=== PATIENT | female | born 1960 | race Caucasian/White ===

== ENCOUNTER 2020-07-02 09:29 | Outpatient (CLI) | payer MEDICARE, SELFPAY ==
--- NOTE | ~2020-07-02 | XR_ITS ---
EXAMINATION: XR chest 2V 07/02/2020 09:50 INDICATION: Personal history of nicotine dependence PROCEDURE: 2 view chest COMPARISON: No prior studies for comparison. FINDINGS: The lungs are clear. The cardiomediastinal silhouette is within normal limits. There are no pleural effusions. There is no pneumothorax suspected. IMPRESSION: 1: NO ACUTE CARDIOPULMONARY DISEASE. Reviewed, dictated and finalized at location B.
[2020-07-02 18:57] LABS: Add Urine Microscopic? YES; Appearance Urine Cloudy (Clear); Bacteria Urine Trace /hpf; Bilirubin Urine Negative (Negative); Blood Urine 2+ (Negative); Color Urine Yellow (Yellow); Glucose Urine UA Negative (Negative); Ketones Urine Negative (Negative); Leukocyte Esterase Ur Trace LEU/UL (Negative); Mucus Urine Rare /lpf; Nitrate Urine Negative (Negative); Protein Urine Negative (Negative); Specific Grav Ur 1.021 (1.001-1.035); Squamous Epithelial Cell Urine Occasional /hpf (Few); Urobilinogen Urine Negative mg/dL (<2.0); WBC Urine 0-3 /hpf
[2020-07-02 19:02] LABS: Alanine Aminotransferase 12 U/L (4-35); Albumin Level 3.4 g/dL (3.5-5.1); Alkaline Phosphatase 97 U/L (38-126); Anion Gap 2 mmol/L (8-16); Aspartate Amino Transferase 20 U/L (14-36); Bilirubin,Total 0.3 mg/dL (0.2-1.3); Blood Urea Nitrogen 19 mg/dL (7-17); Calcium 9.1 mg/dL (8.4-10.2); Carbon Dioxide 27 mmol/L (22-30); Chloride 109 mmol/L (98-107); Cholesterol 304 mg/dL (0-200); Estimated Glomerular Filt Rate > 60; Glucose 108 mg/dL (65-105); HDL Direct 41 mg/dL; Sodium 138 mmol/L (137-145); Triglycerides 367 mg/dL (<150)
[2020-07-02 19:13] LABS: LDL Cholesterol Direct 194 mg/dL
[2020-07-02 19:22] LABS: Basophils Percent Auto 0.4 % (0.2-1.2); Eosinophils Absolute Auto 0.2 K/mm3 (0-0.3); Eosinophils Percent Auto 2.6 % (0-4.4); Hematocrit 40.9 % (37.0-47.0); Hemoglobin 12.9 g/dL (12.0-15.0); Immature Granulocyte Absolute 0.02 K/mm3 (0.00-0.031); Immature Granulocyte Percent A 0.3 % (0-0.5); Lymphocytes Absolute Auto 1.92 K/mm3 (0.9-3.2); Lymphocytes Percent Auto 25.9 % (18.3-44.2); Mean Corpuscular HGB Conc 31.5 g/dl (32-36); Mean Corpuscular Hemoglobin 27.3 pg (26-34); Mean Corpuscular Volume 86.7 fl (80-100); Mean Platelet Volume 10.5 fl (7.4-10.4); Monocytes Absolute Auto 0.5 K/mm3 (0.1-0.6); Monocytes Percent Auto 6.3 % (2.6-8.5); Neutrophils Absolute Auto 4.8 K/mm3 (1.3-6.7); Neutrophils Percent Auto 64.5 % (45.5-73.1); Platelet Count Result 256 k/mm3 (150-375); Red Blood Count 4.72 M/mm3 (4.2-5.4); Red Cell Distribution Width 14.4 % (11.5-14.5); White Blood Count 7.4 K/mm3 (4.5-10.0)
[2020-07-02 20:07] LABS: Folic Acid 10.3 ng/mL (2.76->20)
[2020-07-02 20:24] LABS: Vitamin D 25 Hydroxy 20.3 ng/mL
== END 2020-07-02 09:30 | disposition home or self-care (01) ==
PROVIDERS: PCP Family Medicine; Visit Provider Family Medicine
DX: Z87.891 Personal history of nicotine dependence (principal); Z78.0 Asymptomatic menopausal state; Z95.5 Presence of coronary angioplasty implant and graft; I25.10 Atherosclerotic heart disease of native coronary artery without angina pectoris; Z82.62 Family history of osteoporosis; Z79.899 Other long term (current) drug therapy
CPT/HCPCS: 36415; 71046; 80053; 80061; 81001; 82306; 82607; 82746; 84443; 85025

== ENCOUNTER 2020-09-12 08:59 | Outpatient (CLI) | payer MEDICARE, SELFPAY ==
--- NOTE | ~2020-09-12 | CT_ITS ---
EXAMINATION: CT abdomen pelvis wo/w con DATE: 09/12/2020 09:48 INDICATION: Microscopic hematuria TECHNIQUE: Computed tomography (CT) of the abdomen and pelvis was performed without and subsequently with 130 cc Omnipaque 350 intravenous contrast. Automated exposure control and iterative reconstructi on technique were employed. Exam dose: 2152.29 mGy-cm total exam DLP. COMPARISON: 09/12/2020 KUB FINDINGS: The lung bases are clear of infiltrate or consolidation. Normal heart size. No pericardial or pleural effusion. The liver, gallbladder, bile ducts, pancreas and pancreatic duct are unremarkable. Borderline splenom egaly, spleen measuring up to 12.6 cm vertical dimension. No urinary tract calculus or hydroureteronephrosis. Renal artery calcifications are noted at the left renal hilum. There are 2 probable small right renal cysts, measuring up to 4.5 mm. Normal caliber of the abdominal aorta. No intraperitoneal or retroperitoneal or pelvic mass lesion or adenopathy or ascites. The urinary bladder appears unremarkable. Approximately 2.3 cm left ovarian or adnexal cystic lesion. The uterus and adnexal areas are otherwis e unremarkable. Normal appendix. No bowel obstruction, bowel wall thickening, pneumatosis or intraperitoneal free air . Small fat-containing umbilical hernia. There are degenerative changes apophyseal joints with associated grade 1 anterolisthesis at L4-5. Diffuse osteopenia. IMPRESSION: Borderline splenic size 2 probable small right renal cysts No urinary tract calculus or hydroureteronephrosis 2.37 or left ovarian or adnexal cystic lesion; consider pelvic ultrasound correlation Reviewed, dictated and finalized at Location [facility]. Reviewed, dictated and finalized at location A. IMPRESSION: Borderline splenic size 2 probable small right renal cysts No urinary tract calculus or hydroureteronephrosis 2.37 or left ovarian or adnexal cystic lesion; consider pelvic ultrasound corre lation
--- NOTE | ~2020-09-12 | XR_ITS ---
XR abdomen/kub 1V DATE: 09/12/2020 09:20 INDICATION: Microscopic hematuria TECHNIQUE: AP projection, 2 views COMPARISON: 09/12/[address] abdomen and pelvis FINDINGS: There is a prominent of fecal material in the colon but no evidence of bowel obstruction. T he psoas shadows are intact. No visceromegaly is evident. There are bilateral calcified pelvic phlebo liths. IMPRESSION: Nonspecific abdomen Reviewed, dictated and finalized at Location [facility]. Reviewed, dictated and finalized at location A. IMPRESSION: Nonspecific abdomen
== END 2020-09-12 09:00 | disposition home or self-care (01) ==
PROVIDERS: PCP Family Medicine; Visit Provider Nurse Practitioner Family
DX: R31.29 Other microscopic hematuria (principal); N28.1 Cyst of kidney, acquired
CPT/HCPCS: 74018; 74178; Q9967

== ENCOUNTER 2020-12-24 09:10 | Outpatient (CLI) | payer MEDICARE, SELFPAY ==
[2020-12-24 18:26] LABS: Hematocrit 43.9 % (37.0-47.0); Mean Corpuscular HGB Conc 29.6 g/dl (32-36); Mean Corpuscular Hemoglobin 26.6 pg (26-34); Mean Platelet Volume 10.6 fl (7.4-10.4); Platelet Count Result 280 k/mm3 (150-375); Red Blood Count 4.88 M/mm3 (4.2-5.4); Red Cell Distribution Width 15.5 % (11.5-14.5); White Blood Count 6.4 K/mm3 (4.5-10.0)
[2020-12-24 18:44] LABS: Alanine Aminotransferase 15 U/L (4-35); Alkaline Phosphatase 101 U/L (38-126); Anion Gap 8 mmol/L (8-16); Aspartate Amino Transferase 24 U/L (14-36); Bilirubin,Total 0.2 mg/dL (0.2-1.3); Blood Urea Nitrogen 15 mg/dL (7-17); Calcium 9.6 mg/dL (8.4-10.2); Carbon Dioxide 24 mmol/L (22-30); Chloride 110 mmol/L (98-107); Cholesterol 166 mg/dL (0-200); Estimated Glomerular Filt Rate > 60; Glucose 110 mg/dL (65-110); HDL Direct 60 mg/dL; Potassium 4.2 mmol/L (3.4-5.0); Sodium 142 mmol/L (137-145); Triglycerides 115 mg/dL (<150)
[2020-12-24 18:55] LABS: LDL Cholesterol Direct 89 mg/dL
[2020-12-24 18:56] LABS: Vitamin D 25 Hydroxy 67.1 ng/mL
[2020-12-24 19:50] LABS: Hemoglobin A1C 5.3 % (<5.7)
[2020-12-28 09:25] LABS: Amphetamines NEGATIVE ng/mL (<500); Barbiturates NEGATIVE ng/mL (<300); Benzodiazepines NEGATIVE ng/mL (<100); Cocaine Metabolite NEGATIVE ng/mL (<100); Codeine NEGATIVE ng/mL (<50); Hydrocodone NEGATIVE ng/mL (<50); Hydromorphone NEGATIVE ng/mL (<50); Marijuana Metabolite POSITIVE ng/mL (<20); Methadone Metabolite NEGATIVE ng/mL (<100); Morphine NEGATIVE ng/mL (<50); Norhydrocodone NEGATIVE ng/mL (<50); Opiates NEGATIVE CONFIRMED ng/mL (<100); Oxidant NEGATIVE mcg/mL (<200); pH 5.4 (4.5-9.0)
== END 2020-12-24 09:11 | disposition home or self-care (01) ==
PROVIDERS: PCP Family Medicine; Visit Provider Family Medicine
DX: E78.2 Mixed hyperlipidemia (principal); G47.00 Insomnia, unspecified; R79.89 Other specified abnormal findings of blood chemistry; Z78.0 Asymptomatic menopausal state; Z95.5 Presence of coronary angioplasty implant and graft; G89.29 Other chronic pain; E55.9 Vitamin D deficiency, unspecified; Z79.899 Other long term (current) drug therapy
CPT/HCPCS: 36415; 80053; 80061; 80299; 82306; 83036; 85027

== ENCOUNTER 2021-06-04 10:20 | Outpatient (CLI) | payer MEDICARE, SELFPAY ==
--- NOTE | ~2021-06-04 | XR_ITS ---
EXAMINATION: XR chest 2V EXAM DATE: 06/04/2021 10:44 INDICATION: R06.00 - Dyspnea, unspecified. TECHNIQUE: Frontal and lateral projections of the chest obtained and reviewed. Comparison is made to prior examination from 06/12/2020. FINDINGS: The lungs are clear. There are no pleural effusions. The cardiomediastinal silhouette is within normal limits. There is no pneumothorax suspected. The bones and soft tissues are unremarkab le. IMPRESSION: Normal chest. Reviewed, dictated and finalized at location B. IMPRESSION: Normal chest.
--- NOTE | ~2021-06-04 | XR_ITS ---
XR ribs RT 2V DATE: 06/04/2021 10:45 INDICATION: Right upper lateral rib pain. Shortness of breath. TECHNIQUE: 3 views of right ribs COMPARISON: None FINDINGS: There is diffuse osteopenia. No fracture or bone destruction of the right ribs is evident. IMPRESSION: No rib fracture is detected Reviewed, dictated and finalized at location A. IMPRESSION: No rib fracture is detected
[2021-06-04 19:14] LABS: Hematocrit 31.6 % (37.0-47.0); Hemoglobin 8.9 g/dL (12.0-15.0); Mean Corpuscular HGB Conc 28.2 g/dl (32-36); Mean Corpuscular Hemoglobin 21.4 pg (26-34); Mean Platelet Volume 10.5 fl (7.4-10.4); Platelet Count Result 316 k/mm3 (150-375); Red Blood Count 4.16 M/mm3 (4.2-5.4); Red Cell Distribution Width 16.9 % (11.5-14.5); White Blood Count 5.2 K/mm3 (4.5-10.0)
[2021-06-04 19:21] LABS: Iron 28 ug/dL (37-170)
[2021-06-04 19:31] LABS: Percent Iron Saturation 5 % (20-50)
== END 2021-06-04 10:21 | disposition home or self-care (01) ==
PROVIDERS: PCP Family Medicine; Visit Provider Family Medicine
DX: R07.81 Pleurodynia (principal); R06.00 Dyspnea, unspecified; R63.4 Abnormal weight loss; R79.89 Other specified abnormal findings of blood chemistry
CPT/HCPCS: 36415; 71046; 71100; 83540; 83550; 84443; 85027

== ENCOUNTER 2021-07-01 09:26 | Outpatient (CLI) | payer MEDICARE, SELFPAY ==
[2021-07-01 18:47] LABS: Basophils Absolute Auto 0.1 K/mm3 (0.0-0.1); Eosinophils Percent Auto 0.7 % (0-4.4); Hematocrit 36.1 % (37.0-47.0); Hemoglobin 9.9 g/dL (12.0-15.0); Immature Granulocyte Absolute 0.02 K/mm3 (0.00-0.031); Immature Granulocyte Percent A 0.3 % (0-0.5); Lymphocytes Absolute Auto 0.94 K/mm3 (0.9-3.2); Lymphocytes Percent Auto 15.8 % (18.3-44.2); Mean Corpuscular HGB Conc 27.4 g/dl (32-36); Mean Corpuscular Hemoglobin 21.6 pg (26-34); Mean Corpuscular Volume 78.6 fl (80-100); Mean Platelet Volume 9.8 fl (7.4-10.4); Monocytes Absolute Auto 0.6 K/mm3 (0.1-0.6); Monocytes Percent Auto 9.9 % (2.6-8.5); Neutrophils Absolute Auto 4.3 K/mm3 (1.3-6.7); Neutrophils Percent Auto 72.3 % (45.5-73.1); Platelet Count Result 287 k/mm3 (150-375); Red Blood Count 4.59 M/mm3 (4.2-5.4); Red Cell Distribution Width 20.4 % (11.5-14.5); White Blood Count 5.9 K/mm3 (4.5-10.0)
[2021-07-01 19:01] LABS: Iron 124 ug/dL (37-170)
[2021-07-01 19:08] LABS: Platelet Estimate Adequate (Adequate)
[2021-07-01 19:09] LABS: Anisocytosis 1+ (NORMAL); Hypochromasia 1+ (NORMAL); Ovalocytes 1+ (NORMAL)
[2021-07-01 19:18] LABS: Percent Iron Saturation 21 % (20-50)
== END 2021-07-01 09:27 | disposition home or self-care (01) ==
PROVIDERS: PCP Family Medicine; Visit Provider Family Medicine
DX: G25.81 Restless legs syndrome (principal); D64.9 Anemia, unspecified; R63.4 Abnormal weight loss; R79.89 Other specified abnormal findings of blood chemistry; R07.81 Pleurodynia
CPT/HCPCS: 36415; 83540; 83550; 85025

== ENCOUNTER 2021-10-30 08:16 | Outpatient (CLI) | payer MEDICARE, SELFPAY ==
[2021-10-30 18:58] LABS: Basophils Absolute Auto 0.1 K/mm3 (0.0-0.1); Basophils Percent Auto 0.8 % (0.2-1.2); Eosinophils Absolute Auto 0.2 K/mm3 (0-0.3); Eosinophils Percent Auto 3.7 % (0-4.4); Hematocrit 44.9 % (37.0-47.0); Hemoglobin 13.5 g/dL (12.0-15.0); Immature Granulocyte Absolute 0.02 K/mm3 (0.00-0.031); Immature Granulocyte Percent A 0.3 % (0-0.5); Lymphocytes Percent Auto 20.1 % (18.3-44.2); Mean Corpuscular HGB Conc 30.1 g/dl (32-36); Mean Corpuscular Hemoglobin 27.2 pg (26-34); Mean Corpuscular Volume 90.5 fl (80-100); Mean Platelet Volume 9.7 fl (7.4-10.4); Monocytes Absolute Auto 0.4 K/mm3 (0.1-0.6); Monocytes Percent Auto 6.6 % (2.6-8.5); Neutrophils Absolute Auto 4.4 K/mm3 (1.3-6.7); Neutrophils Percent Auto 68.5 % (45.5-73.1); Platelet Count Result 291 k/mm3 (150-375); Red Blood Count 4.96 M/mm3 (4.2-5.4); Red Cell Distribution Width 20.6 % (11.5-14.5); White Blood Count 6.5 K/mm3 (4.5-10.0)
[2021-10-30 19:42] LABS: Iron 67 ug/dL (37-170)
[2021-10-30 19:52] LABS: Percent Iron Saturation 14 % (20-50)
== END 2021-10-30 08:17 | disposition home or self-care (01) ==
PROVIDERS: PCP Family Medicine; Visit Provider Family Medicine
DX: D64.9 Anemia, unspecified (principal)
CPT/HCPCS: 36415; 83540; 83550; 85025

== ENCOUNTER 2021-12-10 09:06 | Outpatient (CLI) | payer MEDICARE, SELFPAY ==
[2021-12-10 18:40] LABS: Appearance Urine Slightly Cloudy (Clear); Bilirubin Urine 1+ (Negative); Blood Urine 2+ (Negative); Color Urine Yellow (Yellow); Glucose Urine UA Negative (Negative); Ketones Urine Negative (Negative); Leukocyte Esterase Ur 1+ LEU/UL (NEGATIVE); Nitrate Urine Negative (Negative); Protein Urine Negative (Negative); Specific Grav Ur 1.025 (1.001-1.035); Urobilinogen Urine 0.2 mg/dL (<2.0)
[2021-12-10 18:49] LABS: Add Urine Microscopic? YES; Mucus Urine Rare /lpf; RBC Urine 0-2 /hpf (0-2); Squamous Epithelial Cell Urine Many /hpf (Few)
== END 2021-12-10 09:07 | disposition home or self-care (01) ==
PROVIDERS: PCP Family Medicine; Visit Provider Family Medicine
DX: N30.90 Cystitis, unspecified without hematuria (principal)
CPT/HCPCS: 81001; 87086

== ENCOUNTER 2022-02-28 15:55 | Emergency (ER) | payer MEDICARE, SELFPAY ==
--- NOTE | ~2022-02-28 | XR_ITS ---
Left foot Technique: AP, oblique, and lateral views were obtained. Clinical History: Pain Findings: There is a transverse, traumatic, nondisplaced fracture of the base of fifth metatarsal. No other fracture or dislocation seen. There is probable postoperative change of the first metatarsal. Plantar calcaneal spur noted. Joint spaces are preserved without erosive or degenerative change. Soft tissues are unremarkable. Impression: Transverse, essentially nondisplaced fracture of the base of the fifth metatarsal. Probable postoperative change of the first metatarsal. Correlate with surgical history. Reviewed, dictated and finalized at [facility]. [employer] Impression: Transverse, essentially nondisplaced fracture of the base of the fifth metatars al. Probable postoperative change of the first metatarsal. Correlate with surgical history.
--- NOTE | 2022-02-28 15:57 | ED.LOWEXIN ---
HPI - Extremity Injury (Lower) General Chief Complaint: Extremity Injury, Lower Stated Complaint: left foor injury Time Seen by Provider: 02/28/22 15:57 Source: patient and RN notes reviewed Mode of arrival: wheelchair Limitations: no limitations History of Present Illness HPI Narrative: patient states that she moved into a new house and there is a small riser lip in the floor going into 1 of the rooms. She caught her foot on that causing inversion twisting injury of her left foot. complaint: foot injury Onset (ago): hour(s) (2) Injury: Left: foot Type of Injury: inversion Place: home Severity: severe Relieving factors: rest Exacerbating factors: weight bearing, movement and palpation Context: walking Associated symptoms: snap/pop sensation and unable to bear weight Other symptoms: none Treatments prior to arrival: bandage (Alvin wrap) Related Data Home Medications Medication Instructions Recorded Confirmed aspirin 81 mg tablet,delayed 81 mg PO DAILY 06/19/20 02/28/22 release (Adult Low Dose Aspirin) Allergies Allergy/AdvReac Type Severity Reaction Status Date / Time No Known Allergies Allergy Verified 02/28/22 16:17 Review of Systems Review of Systems: All systems reviewed & are unremarkable except as noted in HPI and below PMFSH Past Medical History Medical History (Updated 02/28/22 @ 16:32 by Leobardo Muñiz MD) Anxiety Arthritis CAD (coronary artery disease) Depression Eczema Encounter for administration of vaccine Heart attack Heart disease Mixed dyslipidemia Obesity Surgical History Surgical History (Updated 02/28/22 @ 16:14 by Leobardo Muñiz MD) H/O foot surgery History of bladder surgery Stented coronary artery Family History Family History Father Alcohol abuse Throat cancer Diabetes mellitus Liver problem Mother Heart problem Sibling Alcohol abuse Other Alcohol abuse Social History Social History Smoking packs per day: 1 Smoking cigarettes per day: 20.0 Years smoked: 30 Smoking pack-years: 30.00 Smoking status: Former smoker Tobacco type: cigarettes Smoking end date: 04/09/20 Alcohol intake: never Substance use: never Substance use type: does not use Exam Const: General: healthy appearing, no acute distress and alert Nutritional Appearance: well nourished and obese Orientation/consciousness: patient oriented x3 Limitations: no limitations HENMT: Head: normal to inspection Ears: external ears normal Eyes: Conjunctivae: conjunctivae normal Pupils: Equal, round and reactive pupils present EOM: EOMs intact bilaterally Neck: Neck: normal visual inspection Resp: Effort & Inspection: normal respiratory effort Auscultation: clear to auscultation bilaterally Cardio: Rate: regular rate Rhythm: regular rhythm GI: GI Palp: Yes Soft to palpation and No Tenderness to palpation present (GI) Auscultation: normal bowel sounds Back/Spine/Pelvis: Cervical Spine: cervical ROM normal Thoracic/Lumbar Spine: thoraco-lumbar ROM normal Skin: General skin exam: normal color Rashes: no rashes Neuro: General: patient oriented x3, moves all extremities, no focal motor deficits and CN's II-XI intact bilaterally Speech: normal speech Extrem: General: normal exam except as noted and no clubbing, cyanosis or edema Left lower extremity: foot Details: normal capillary refill, abnormal to inspection, tenderness Location: of the base of the 5th metatarsal, toes with normal ROM, ecchymosis ( base of the 5th metatarsal) dorsal lateral distal single and motor-sensory exam (Normal) Psych: Mental Status: mental status grossly normal Affect: normal affect Attitude: cooperative Course Vital Signs Vital signs: Vital Signs Temperature 36.9 C 02/28/22 15:59 Pulse Rate 88 02/28/22 15:59 Respiratory Rate 16 02/28/22 15:59 Blood Pressure
[2022-02-28 15:59] VITALS: BP 105/90; PULSE 88; RESP 16; TEMP 36.9; O2SAT 98
[2022-02-28] MEDS: HYDROcodone/acetaminophen (*CRX) 5-325 MG TABLET 1 TAB PO (16:34)
[2022-02-28 17:01] VITALS: BP 108/88; PULSE 64; RESP 20; TEMP 36.9; O2SAT 96
== END 2022-02-28 17:04 | disposition home or self-care (01) ==
PROVIDERS: Emergency Provider Emergency Medicine; PCP Family Medicine
DX: S92.352A Displaced fracture of fifth metatarsal bone, left foot, initial encounter for closed fracture (principal); X50.0XXA Overexertion from strenuous movement or load, initial encounter; I25.10 Atherosclerotic heart disease of native coronary artery without angina pectoris; I25.2 Old myocardial infarction; I51.9 Heart disease, unspecified; Z95.5 Presence of coronary angioplasty implant and graft; Z87.891 Personal history of nicotine dependence; Z79.82 Long term (current) use of aspirin; Z79.51 Long term (current) use of inhaled steroids; Z79.02 Long term (current) use of antithrombotics/antiplatelets; E78.2 Mixed hyperlipidemia; F41.9 Anxiety disorder, unspecified; F32.A Depression, unspecified; E66.9 Obesity, unspecified; Z68.33 Body mass index [BMI] 33.0-33.9, adult
CPT/HCPCS: 73630; 99284; A9270; L2112

== ENCOUNTER 2022-04-22 10:20 | Outpatient (CLI) | payer MEDICARE, SELFPAY ==
--- NOTE | ~2022-04-22 | XR_ITS ---
EXAMINATION: XR foot LT min 3V DATE: 04/22/2022 10:32 INDICATION: Fifth metatarsal fracture follow-up TECHNIQUE: Dorsoplantar, lateral, and 2 oblique views of the left foot were obtained. COMPARISON: 02/28/2022 FINDINGS: Again seen is a transverse fracture at the base of the fifth metatarsal. There is slight wi dening at the fracture site since the comparison examination. Some calcified callus has developed. Th ere is suggestion of postoperative change involving first metatarsal, stable. Mild osteoarthritis is noted in multiple interphalangeal joints. No additional acute fracture is identified. A plantar calca serafin enthesophyte is noted. IMPRESSION: 1. Transverse fracture at the base of the fifth metatarsal with slight widening at the fracture site but development of calcified callus. Reviewed, dictated and finalized at location L. [employer]
== END 2022-04-22 10:21 | disposition home or self-care (01) ==
LOC: ANHBWCIMG 10:21
PROVIDERS: PCP Family Medicine; Visit Provider Family Medicine
DX: S92.352A Displaced fracture of fifth metatarsal bone, left foot, initial encounter for closed fracture (principal); X58.XXXA Exposure to other specified factors, initial encounter
CPT/HCPCS: 73630

== ENCOUNTER 2022-05-02 02:47 | Day surgery (SDC) | payer MEDICARE, SELFPAY ==
[2022-04-22 12:13] VITALS: BMI 33.1
[2022-05-02 10:15] VITALS: BP 103/78; PULSE 72; RESP 18; TEMP 36.6; O2SAT 99
[2022-05-02] MEDS: LACTATED RINGERS 1,000 ML 150 ML IV CONT (10:23)
--- NOTE | 2022-05-02 10:29 | WPDANESEPPF ---
Anes - Initial Pre Proc Eval Procedure: Operation Date: 05/02/22 11:15 Proposed Procedures p Colonoscopy - Gilles Gonzalez MD Date/Time: 05/02/22 10:29 Surgeon: Gilles Gonzalez MD Pre Op Diagnosis: Other fecal abnormalitis Patient Data Age: 61 Gender: F Height: 1.7 m Weight: 95.2 kg Last Vital Signs Temp 97.8 F 05/02/22 10:15 Pulse 72 05/02/22 10:15 Resp 18 05/02/22 10:15 BP 103/78 05/02/22 10:15 Pulse Ox 99 05/02/22 10:15 O2 Del Method Room Air 05/02/22 10:15 Allergies Allergy/AdvReac Type Severity Reaction Status Date / Time No Known Allergies Allergy Verified 05/02/22 10:14 Home Medications Medication Instructions Recorded Confirmed Type aspirin 81 mg tablet,delayed 81 mg PO DAILY 06/19/20 04/22/22 History release (Adult Low Dose Aspirin) albuterol sulfate 90 mcg/actuation 1 inh inhalation Q4H PRN shortness 06/04/21 04/22/22 Rx aerosol inhaler of breath or wheezing #8.5 grams ropinirole 2 mg tablet 2 mg PO BID #180 tabs 12/11/21 04/22/22 Rx ferrous sulfate 325 mg (65 mg 325 mg PO DAILY #90 tabs 12/19/21 05/02/22 Rx iron) tablet,delayed release trazodone 50 mg tablet 100 mg PO QHS PRN insomnia #180 01/06/22 04/22/22 Rx tabs isosorbide mononitrate 60 mg 90 mg PO DAILY #90 tabs 01/10/22 05/02/22 Rx tablet,extended release 24 hr rosuvastatin 40 mg tablet 40 mg PO DAILY #90 tabs 01/16/22 04/22/22 Rx buspirone 15 mg tablet 15 mg PO BID #180 tabs 01/28/22 04/22/22 Rx metoprolol succinate 50 mg 50 mg PO BID #180 tabs 02/06/22 05/02/22 Rx tablet,extended release 24 hr clopidogrel 75 mg tablet (Plavix) 75 mg PO DAILY #90 tabs 02/15/22 05/02/22 Rx duloxetine 60 mg capsule,delayed 60 mg PO BID #180 caps 03/02/22 04/22/22 Rx release quetiapine 50 mg tablet 50 mg PO QHS #90 tabs 04/22/22 04/22/22 Rx Patient hx anesthesia problems: none Family hx anesthesia problems: none Results Review: All pre-operative results and documents have been reviewed as part of the pre-operative evaluation. [facility] Past Medical History Medical History (Updated 04/22/22 @ 12:00 by Adriano Stiles MD) Anxiety Arthritis CAD (coronary artery disease) Depression Eczema Encounter for administration of vaccine Heart attack Heart disease Mixed dyslipidemia Obesity Surgical History Surgical History (Updated 02/28/22 @ 16:14 by Leobardo Muñiz MD) H/O foot surgery History of bladder surgery Stented coronary artery Family History Family History Father Alcohol abuse Throat cancer Diabetes mellitus Liver problem Mother Heart problem Sibling Alcohol abuse Other Alcohol abuse Social History Social History (Updated 03/06/22 @ 10:17 by Sherin Cassidy MA) Smoking packs per day: 1 Smoking cigarettes per day: 20.0 Years smoked: 30 Smoking pack-years: 30.00 Smoking status: Former smoker Tobacco type: cigarettes Smoking end date: 04/09/20 Alcohol intake: current Substance use: never Substance use type: does not use Lack of Transportation: No Lack of Food: Never True Current Housing: I Have Housing Concerned About Future Housing: No Difficulty Paying Gas/Electric Bills: No Difficulty Paying for Meds: No Currently Unemployed: No Education: High School Diploma/GED Difficulty w/ Childcare or Family Care: No Living arrangements: with family Spiritual care concerns: No Anes - Eval Final PreProcedure Day of Procedure 05/02/22 10:29 Patient weight: obese Heart: regular rate and rhythm Lungs: clear to auscultation Airway: Mallampati scale class III Neurological: alert and oriented Last oral intake: >/= 8 hours ASA classification: III Emergent: no Anesthetic plan: proceed Anesthesia type and monitoring: general GIVS and standard monitoring Results Review: All pre-operative results and documents have been reviewed as part of the pre-o
--- NOTE | 2022-05-02 10:45 | PM.HPGS ---
History of Present Illness History of Present Illness Consent: Risks, benefits, and alternatives have been discussed and questions answered. Patient agrees to proceed with procedure. Chief complaint: Other fecal abnormalitis Narrative: Colette Reyes is a 61 year old female with last colonoscopy 10 years ago, had + cologuard Review of Systems Constitutional: Constitutional: Denies headache(s) and Denies weakness Eyes: Eyes: Denies blurry vision ENT: Reports Normal hearing present, Denies headache(s) and Denies neck pain Cardiovascular: Cardiovascular: Denies chest pain and Denies dyspnea Respiratory: Respiratory: Denies dyspnea Gastrointestinal: Gastrointestinal: Reports no additional gastrointestinal complaints Genitourinary: Genitourinary: Denies dysuria Musculoskeletal: Musculoskeletal: Denies neck pain Integumentary/Breasts: Skin/Breast: Denies dry skin Neurologic: Reports Normal hearing present, Denies headache(s) and Denies weakness Psychiatric: Psychiatric: Denies anxiety Endocrine: Endocrine: Denies change in body appearance Hematologic/Lymphatic: Hematologic/Lymphatic: Denies easy bleeding Allergic/Immunologic: Allergic/Immunologic: Denies urticaria PMFSH Past Medical History Medical History (Updated 04/22/22 @ 12:00 by Adriano Stiles MD) Anxiety Arthritis CAD (coronary artery disease) Depression Eczema Encounter for administration of vaccine Heart attack Heart disease Mixed dyslipidemia Obesity Surgical History Surgical History (Updated 02/28/22 @ 16:14 by Leobardo Muñiz MD) H/O foot surgery History of bladder surgery Stented coronary artery Family History Family History Father Alcohol abuse Throat cancer Diabetes mellitus Liver problem Mother Heart problem Sibling Alcohol abuse Other Alcohol abuse Social History Social History (Updated 03/06/22 @ 10:17 by Sherin Cassidy MA) Smoking packs per day: 1 Smoking cigarettes per day: 20.0 Years smoked: 30 Smoking pack-years: 30.00 Smoking status: Former smoker Tobacco type: cigarettes Smoking end date: 04/09/20 Alcohol intake: current Substance use: never Substance use type: does not use Lack of Transportation: No Lack of Food: Never True Current Housing: I Have Housing Concerned About Future Housing: No Difficulty Paying Gas/Electric Bills: No Difficulty Paying for Meds: No Currently Unemployed: No Education: High School Diploma/GED Difficulty w/ Childcare or Family Care: No Living arrangements: with family Spiritual care concerns: No Meds Home Medications and Allergies Home Medications Medication Instructions Recorded Confirmed Type aspirin 81 mg tablet,delayed 81 mg PO DAILY 06/19/20 04/22/22 History release (Adult Low Dose Aspirin) albuterol sulfate 90 mcg/actuation 1 inh inhalation Q4H PRN shortness 06/04/21 04/22/22 Rx aerosol inhaler of breath or wheezing #8.5 grams ropinirole 2 mg tablet 2 mg PO BID #180 tabs 12/11/21 04/22/22 Rx ferrous sulfate 325 mg (65 mg 325 mg PO DAILY #90 tabs 12/19/21 05/02/22 Rx iron) tablet,delayed release trazodone 50 mg tablet 100 mg PO QHS PRN insomnia #180 01/06/22 04/22/22 Rx tabs isosorbide mononitrate 60 mg 90 mg PO DAILY #90 tabs 01/10/22 05/02/22 Rx tablet,extended release 24 hr rosuvastatin 40 mg tablet 40 mg PO DAILY #90 tabs 01/16/22 04/22/22 Rx buspirone 15 mg tablet 15 mg PO BID #180 tabs 01/28/22 04/22/22 Rx metoprolol succinate 50 mg 50 mg PO BID #180 tabs 02/06/22 05/02/22 Rx tablet,extended release 24 hr clopidogrel 75 mg tablet (Plavix) 75 mg PO DAILY #90 tabs 02/15/22 05/02/22 Rx duloxetine 60 mg capsule,delayed 60 mg PO BID #180 caps 03/02/22 04/22/22 Rx release quetiapine 50 mg tablet 50 mg PO QHS #90 tabs 04/22/22 04/22/22 Rx Allergies Allergy/AdvReac Type Severity Reaction Status Date / Time No Known Allergies
[2022-05-02 11:14] VITALS: BP 110/78; PULSE 77; RESP 16; O2SAT 91
[2022-05-02 11:17] VITALS: PULSE 77; RESP 26
--- NOTE | 2022-05-02 11:21 | SUR.PHASEII ---
Respiratory treatment ordered by Dr. Thao and RGael. here to administer treatment.
[2022-05-02 11:24] VITALS: BP 100/65; PULSE 72; RESP 18; O2SAT 96
[2022-05-02] MEDS: ALBUTEROL SULFATE NEB 2.5 MG/3 ML INH INHALATION (11:24)
[2022-05-02 11:27] VITALS: PULSE 71; RESP 16
[2022-05-02 11:34] VITALS: BP 103/63; PULSE 67; RESP 16; O2SAT 96
--- NOTE | 2022-05-13 13:41 | WPDANESPN ---
Anes - Prog Note Post-Op Date/Time: 05/13/22 13:41 Cardiovascular status: normal Respiratory status: normal Airway patency: baseline (states has been hoarse/ no voice since her procedure) Mental status: baseline Post-Op hydration status: normal Vital Signs: Last Vital Signs Temp 97.8 F 05/02/22 10:15 Pulse 67 05/02/22 11:34 Resp 16 05/02/22 11:34 BP 103/63 05/02/22 11:34 Pulse Ox 96 05/02/22 11:34 O2 Del Method Room Air 05/02/22 11:34 Pain Score (VAS): none Post-procedural complaints: none Patient Feedback: Patient satisfied with anesthetic care. Other Findings: I attempted to call the patient several times prior to today with no answer. I finally spoke with her today to check on her status. I called, she answered then hung up the phone. I recalled and then she states why do you keep calling and I told her, this is my first time talking to her. She stated that she still didn't have a voice and I should have talked to her sooner after the procedure. I told her I had called several times with no answer. She then told me goodbye without allowing me to speak with her.
== END 2022-05-02 11:54 | disposition home or self-care (01) ==
PROVIDERS: PCP Family Medicine; Visit Provider Internal Medicine Gastroenterology
PROC: 0DJD8ZZ Inspection of Lower Intestinal Tract, Via Natural or Artificial Opening Endoscopic (ICD-10-PCS; CPT 45378; principal; 2022-05-02 11:15)
DX: R19.5 Other fecal abnormalities (principal); D12.4 Benign neoplasm of descending colon; K57.30 Diverticulosis of large intestine without perforation or abscess without bleeding; K64.8 Other hemorrhoids; I25.10 Atherosclerotic heart disease of native coronary artery without angina pectoris; I25.2 Old myocardial infarction; E78.2 Mixed hyperlipidemia; F41.9 Anxiety disorder, unspecified; F32.A Depression, unspecified; E66.9 Obesity, unspecified; Z68.32 Body mass index [BMI] 32.0-32.9, adult; Z87.891 Personal history of nicotine dependence; Z79.82 Long term (current) use of aspirin; Z79.51 Long term (current) use of inhaled steroids; Z79.02 Long term (current) use of antithrombotics/antiplatelets; Z95.5 Presence of coronary angioplasty implant and graft
CPT/HCPCS: 45385; 88305; 94640; J2704; J7120

== ENCOUNTER 2022-05-08 12:20 | Outpatient (CLI) | payer MEDICARE, SELFPAY ==
[2022-05-08 19:34] LABS: Alanine Aminotransferase 17 U/L (6-35); Albumin Level 3.7 g/dL (3.5-5.1); Alkaline Phosphatase 104 U/L (38-126); Anion Gap -2 mmol/L (8-16); Aspartate Amino Transferase 70 U/L (14-36); Bilirubin,Total 0.4 mg/dL (0.2-1.3); Blood Urea Nitrogen 14 mg/dL (7-17); Carbon Dioxide 32 mmol/L (22-30); Chloride 107 mmol/L (98-107); Cholesterol 166 mg/dL (0-200); Estimated Glomerular Filt Rate > 60; Glucose 85 mg/dL (65-110); HDL Direct 52 mg/dL; Potassium 3.9 mmol/L (3.4-5.0); Sodium 137 mmol/L (137-145); Triglycerides 135 mg/dL (<150)
[2022-05-08 19:45] LABS: LDL Cholesterol Direct 70 mg/dL
[2022-05-08 21:10] LABS: Basophils Percent Auto 0.7 % (0.2-1.2); Eosinophils Absolute Auto 0.2 K/mm3 (0-0.3); Eosinophils Percent Auto 2.6 % (0-4.4); Hemoglobin 13.7 g/dL (12.0-15.0); Immature Granulocyte Absolute 0.02 K/mm3 (0.00-0.031); Immature Granulocyte Percent A 0.3 % (0-0.5); Lymphocytes Absolute Auto 1.51 K/mm3 (0.9-3.2); Lymphocytes Percent Auto 26.3 % (18.3-44.2); Mean Corpuscular HGB Conc 30.4 g/dl (32-36); Mean Corpuscular Hemoglobin 29.1 pg (26-34); Mean Corpuscular Volume 95.7 fl (80-100); Mean Platelet Volume 10.2 fl (7.4-10.4); Monocytes Absolute Auto 0.3 K/mm3 (0.1-0.6); Monocytes Percent Auto 5.7 % (2.6-8.5); Neutrophils Absolute Auto 3.7 K/mm3 (1.3-6.7); Neutrophils Percent Auto 64.4 % (45.5-73.1); Platelet Count Result 291 k/mm3 (150-375); Red Cell Distribution Width 13.4 % (11.5-14.5); White Blood Count 5.8 K/mm3 (4.5-10.0)
== END 2022-05-08 12:21 | disposition home or self-care (01) ==
LOC: ANHBWCLAB 12:21
PROVIDERS: PCP Family Medicine; Visit Provider Family Medicine
DX: D64.9 Anemia, unspecified (principal); E66.9 Obesity, unspecified; E78.2 Mixed hyperlipidemia; S92.501A Displaced unspecified fracture of right lesser toe(s), initial encounter for closed fracture
CPT/HCPCS: 36415; 80053; 80061; 85025

== ENCOUNTER 2022-10-14 07:46 | Outpatient (CLI) | payer MEDICARE, SELFPAY ==
[2022-10-14 18:53] LABS: Alanine Aminotransferase 20 U/L (6-35); Albumin Level 3.5 g/dL (3.5-5.1); Alkaline Phosphatase 98 U/L (38-126); Aspartate Amino Transferase 62 U/L (14-36); Bilirubin,Total 0.3 mg/dL (0.2-1.3)
[2022-10-14 19:25] LABS: Hepatitis B Surface Antigen Negative (Negative)
[2022-10-14 19:31] LABS: HAV RESULT Negative (Negative); Hepatitis B Core IgM Result Negative (Negative)
[2022-10-14 19:42] LABS: Hepatitis C Virus Antibody Negative (Negative)
== END 2022-10-14 07:47 | disposition home or self-care (01) ==
PROVIDERS: PCP Family Medicine; Visit Provider Family Medicine
DX: R74.8 Abnormal levels of other serum enzymes (principal); E66.9 Obesity, unspecified; G47.00 Insomnia, unspecified; R74.01 Elevation of levels of liver transaminase levels
CPT/HCPCS: 36415; 80074; 80076

== ENCOUNTER 2022-10-31 09:17 | Outpatient (CLI) | payer MEDICARE, SELFPAY ==
--- NOTE | ~2022-10-31 | US_ITS ---
US abdomen limited INDICATION: Abnormal levels of serum enzymes PROCEDURE: Realtime right upper abdominal ultrasound. COMPARISON: No prior studies for comparison. FINDINGS: The pancreas is normal without focal mass or pancreatic ductal dilation. Liver echotexture is normal without focal mass or intrahepatic biliary dilatation. There is normal directional flow i n the portal vein. The gallbladder is normal without stones, gallbladder wall thickening or pericholecystic fluid. Comm on bile duct measures 3.6 mm. No sonographic Dias's sign. IMPRESSION: 1: Normal limited abdominal ultrasound. Reviewed, dictated and finalized at location B.
--- NOTE | ~2022-10-31 | CT_ITS ---
EXAMINATION: CT lung screening DATE: 10/31/2022 09:48 INDICATION: Smoking history TECHNIQUE: Computed tomography (CT) of the chest was performed without intravenous contrast. The dose -length product was 208.00 mGy-cm. Automated exposure control and iterative reconstruction technique were employed. COMPARISON: None FINDINGS: Heart size is normal. No significant pleural or pericardial effusion. No thoracic lymphaden opathy. Upper abdomen is unremarkable. There is a 2 mm right upper lobe nodule. There is a 5 mm some solid no focal airspace consolidation. No pneumothorax. Mild thoracic spondylosis. Right lower lobe n odule. No endobronchial lesions. IMPRESSION: 1. Lung-RADS category 2: Benign appearance or behavior. Continue annual screening with noncontrast lo w-dose chest CT in 12 months. Reviewed, dictated and finalized at location B. IMPRESSION: 1. Lung-RADS category 2: Benign appearance or behavior. Continue annual screeni ng with noncontrast low-dose chest CT in 12 months.
== END 2022-10-31 09:18 | disposition home or self-care (01) ==
LOC: CHSIMG 09:19
PROVIDERS: PCP Family Medicine; Visit Provider Family Medicine
DX: Z12.2 Encounter for screening for malignant neoplasm of respiratory organs (principal); R74.8 Abnormal levels of other serum enzymes; Z87.891 Personal history of nicotine dependence
CPT/HCPCS: 71271; 76705

== ENCOUNTER 2022-12-02 10:37 | Outpatient (CLI) | payer MEDICARE, SELFPAY ==
--- NOTE | ~2022-12-02 | XR_ITS ---
EXAM: XR foot RT 2V DATE: 12/02/2022 11:16 HISTORY: M25.40 - Effusion, unspecified joint . COMPARISON: 09/24/2003, images only. FINDINGS: Normal mineralization. No fracture or dislocation. First MTP bunionectomy change. Fixation pin in the first metatarsal midshaft with perihilar hardware lucency. The inferior portion of the pi n projects proud of the inferior first metatarsal cortex. Moderate plantar enthesopathy. Mild degener ative change at the first MTP joint. No erosion or periosteal change. Soft tissues within normal limi ts. IMPRESSION: Perihilar hardware lucency at the first metatarsal fixation pin which may represent loosening or infe ction. Reviewed, dictated and finalized at location K. IMPRESSION: Perihilar hardware lucency at the first metatarsal fixation pin which may repre sent loosening or infection.
--- NOTE | ~2022-12-02 | XR_ITS ---
EXAM: XR hand LT 2V DATE: 12/02/2022 11:16 HISTORY: M25.40 - Effusion, unspecified joint . COMPARISON: None available. FINDINGS: Normal mineralization. No fracture or dislocation. No lytic or blastic lesion. Mild degene rative change at the trapeziometacarpal joint. Very mild degenerative changes in the interphalangeal joints. Degenerative subchondral cysts present in the lunate. No erosion or periosteal change. Soft t issues within normal limits. IMPRESSION: Mild polyarticular osteoarthritis. Mild lunate degenerative change. Reviewed, dictated and finalized at location K.
[2022-12-02 18:44] LABS: Alanine Aminotransferase 21 U/L (6-35); Albumin Level 3.8 g/dL (3.5-5.1); Alkaline Phosphatase 92 U/L (38-126); Anion Gap 2 mmol/L (8-16); Aspartate Amino Transferase 69 U/L (14-36); Bilirubin,Total 0.5 mg/dL (0.2-1.3); Blood Urea Nitrogen 19 mg/dL (7-17); Calcium 9.3 mg/dL (8.4-10.2); Carbon Dioxide 26 mmol/L (22-30); Chloride 110 mmol/L (98-107); Estimated Glomerular Filt Rate > 60; Glucose 100 mg/dL (65-110); Potassium 4.7 mmol/L (3.4-5.0); Sodium 138 mmol/L (137-145)
[2022-12-02 19:02] LABS: Erythrocyte Sedimentation Rate 21 mm/hr (0-20)
[2022-12-05 17:00] LABS: ANA Cascade Screen Negative (Negative)
== END 2022-12-02 10:38 | disposition home or self-care (01) ==
PROVIDERS: PCP Nurse Practitioner Adult Health; Visit Provider Nurse Practitioner Adult Health
DX: M19.042 Primary osteoarthritis, left hand (principal); M25.40 Effusion, unspecified joint; Z96.7 Presence of other bone and tendon implants
CPT/HCPCS: 36415; 73120; 73620; 80053; 85652; 86038

== ENCOUNTER 2022-12-26 16:29 | Emergency (ER) | payer MEDICARE, SELFPAY ==
[2022-12-26 16:48] VITALS: BP 131/73; PULSE 80; RESP 16; TEMP 36.9; O2SAT 100
--- NOTE | 2022-12-26 17:06 | ED.EYEPROB ---
HPI - Eye Problem General Chief complaint: Eye Problems Stated complaint: Contact in left eye Time Seen by Provider: 12/26/22 17:06 Source: patient Mode of arrival: ambulatory Limitations: no limitations History of Present Illness HPI Narrative: 62-year-old female presented for concerns of foreign body in left eye. She states this morning at 10:30 a.m. she felt her contact lens moved to the top of the eye. She attempted to remove the contact multiple times without success. She currently reports mild pain and redness to the outer left eye. Denies swelling or vision changes. Contact lenses are new to pt, these are a trial pair. chief complaint: eye pain Related Data Home Medications Medication Instructions Recorded Confirmed aspirin 81 mg tablet,delayed 81 mg PO DAILY 06/19/20 12/26/22 release (Adult Low Dose Aspirin) Allergies Allergy/AdvReac Type Severity Reaction Status Date / Time No Known Allergies Allergy Verified 12/02/22 10:08 Review of Systems Review of Systems: CONSTITUTIONAL: Denies body aches, fever, chills EYES:Endorses FB sensation, redness and pain to left eye; denies photophobia or visual changes ENT: Denies rhinorrhea, congestion, sore throat, or otalgia. CARDIOVASCULAR: Denies chest pain, palpitations RESPIRATORY: Denies cough or dyspnea. GASTROINTESTINAL: Denies abdominal pain, nausea, vomiting, or diarrhea. SKIN: Denies rash, itching, or wounds. MUSCULOSKELETAL: Denies back pain, joint pain, or myalgia. NEUROLOGIC: Denies headache, numbness, tingling, or weakness. All systems reviewed & are unremarkable except as noted in HPI and below PMFSH Past Medical History Medical History Anxiety CAD (coronary artery disease) Depression Eczema Encounter for administration of vaccine Heart attack Heart disease Mixed dyslipidemia Obesity Surgical History Surgical History H/O foot surgery History of bladder surgery Stented coronary artery Family History Family History Father Alcohol abuse Throat cancer Diabetes mellitus Liver problem Mother Heart problem Sibling Alcohol abuse Other Alcohol abuse Social History Social History Smoking packs per day: 1 Smoking cigarettes per day: 20.0 Years smoked: 30 Smoking pack-years: 30.00 Smoking status: Former smoker Tobacco type: cigarettes Smoking end date: 04/09/20 Alcohol intake: current Substance use: never Substance use type: does not use Lack of Transportation: No Lack of Food: Never True Current Housing: I Have Housing Concerned About Future Housing: No Difficulty Paying Gas/Electric Bills: No Difficulty Paying for Meds: No Currently Unemployed: No Education: High School Diploma/GED Difficulty w/ Childcare or Family Care: No Living arrangements: with family Spiritual care concerns: No Comments At time of signature, I have reviewed and agree with nursing past medical, surgical, social and family history unless otherwise noted. Please see nursing chart for further information. There is no relevant family history pertinent to the presenting complaint Exam Narrative: GENERAL: Well-appearing HEAD: Normocephalic, atraumatic. EYES: Left lateral subconjunctival hemorrhage with corneal abrasion to the 3 o'clock position just lateral to iris; no eye lid or periorbital swelling. PERRLA. EOMI. Lid eversion showed no FB. ENT: Mucous membranes pink and moist. No rhinorrhea. TMs normal bilaterally. Throat normal. Uvula midline. CHEST: Clear to auscultation. HEART: Regular rate and rhythm. ABDOMEN: Soft, nontender, nondistended SKIN: Warm, dry, no rash. Normal skin turgor. NEURO: No focal deficits. Alert and oriented x3 PSYCH: Normal affect. Eyes: E
== END 2022-12-26 17:35 | disposition home or self-care (01) ==
PROVIDERS: Emergency Provider Nurse Practitioner Family; PCP Family Medicine
DX: S05.02XA Injury of conjunctiva and corneal abrasion without foreign body, left eye, initial encounter (principal); X58.XXXA Exposure to other specified factors, initial encounter; H11.32 Conjunctival hemorrhage, left eye; Z87.891 Personal history of nicotine dependence; I25.10 Atherosclerotic heart disease of native coronary artery without angina pectoris; I50.9 Heart failure, unspecified; E78.2 Mixed hyperlipidemia; E66.9 Obesity, unspecified; Z68.34 Body mass index [BMI] 34.0-34.9, adult; Z95.5 Presence of coronary angioplasty implant and graft; Z79.82 Long term (current) use of aspirin; F41.9 Anxiety disorder, unspecified; F32.A Depression, unspecified
CPT/HCPCS: 99213; A9270; G0463

== ENCOUNTER 2023-05-12 09:50 | Outpatient (CLI) | payer MEDICARE, SELFPAY ==
[2023-05-12 18:59] LABS: Alanine Aminotransferase 18 U/L (6-35); Albumin Level 3.5 g/dL (3.5-5.1); Alkaline Phosphatase 106 U/L (38-126); Anion Gap 4 mmol/L (8-16); Aspartate Amino Transferase 74 U/L (14-36); Bilirubin,Total 0.5 mg/dL (0.2-1.3); Blood Urea Nitrogen 21 mg/dL (7-17); Calcium 9.2 mg/dL (8.4-10.2); Carbon Dioxide 22 mmol/L (22-30); Chloride 111 mmol/L (98-107); Cholesterol 152 mg/dL (0-200); Estimated Glomerular Filt Rate > 60; Glucose 105 mg/dL (65-110); HDL Direct 51 mg/dL; Potassium 4.3 mmol/L (3.4-5.0); Sodium 137 mmol/L (137-145); Triglycerides 117 mg/dL (<150)
[2023-05-12 19:10] LABS: LDL Cholesterol Direct 75 mg/dL
[2023-05-12 19:32] LABS: Hematocrit 45.1 % (37.0-47.0); Hemoglobin 13.8 g/dL (12.0-15.0); Mean Corpuscular HGB Conc 30.6 g/dl (32-36); Mean Corpuscular Hemoglobin 28.9 pg (26-34); Mean Corpuscular Volume 94.5 fl (80-100); Mean Platelet Volume 10.2 fl (7.4-10.4); Platelet Count Result 311 k/mm3 (150-375); Red Blood Count 4.77 M/mm3 (4.2-5.4); Red Cell Distribution Width 14.6 % (11.5-14.5); White Blood Count 5.9 K/mm3 (4.5-10.0)
== END 2023-05-12 09:51 | disposition home or self-care (01) ==
PROVIDERS: PCP Family Medicine; Visit Provider Family Medicine
DX: E78.2 Mixed hyperlipidemia (principal); E66.9 Obesity, unspecified; G47.00 Insomnia, unspecified; I25.10 Atherosclerotic heart disease of native coronary artery without angina pectoris; Z79.899 Other long term (current) drug therapy; Z87.891 Personal history of nicotine dependence
CPT/HCPCS: 36415; 80053; 80061; 85027

== ENCOUNTER 2023-07-25 17:42 | Emergency (ER) | payer MEDICARE, SELFPAY ==
[2023-07-25 17:42] VITALS: BP 113/72; PULSE 83; RESP 15; TEMP 36.9; O2SAT 98
--- NOTE | 2023-07-25 18:23 | ED.FEMALEGU ---
HPI - Female Genitourinary General Chief complaint: Urogenital-Female Stated complaint: pelvic pain and pressure Time Seen by Provider: 07/25/23 17:54 Source: patient Mode of arrival: ambulatory Limitations: no limitations History of Present Illness HPI Narrative: This is a 63-year-old female that presents with some fullness in the vaginal area with no dysuria no flank pain no fever chills no vaginal bleeding. Patient with a history of CAD hyperlipidemia depression. There is no chest pain no shortness of breath no nausea or vomiting no abdominal pain. MD elicited complaint: prolapse Severity scale (1-10): 2 Quality of pain: other ( Vaginal fullness) Related Data Home Medications Medication Instructions Recorded Confirmed aspirin 81 mg tablet,delayed 81 mg PO DAILY 06/19/20 12/26/22 release (Adult Low Dose Aspirin) Allergies Allergy/AdvReac Type Severity Reaction Status Date / Time No Known Allergies Allergy Verified 07/25/23 17:55 Review of Systems Review of Systems: All systems reviewed & are unremarkable except as noted in HPI and below PMFSH Past Medical History Medical History Anxiety CAD (coronary artery disease) Depression Eczema Encounter for administration of vaccine Heart attack Heart disease Mixed dyslipidemia Obesity Surgical History Surgical History H/O foot surgery History of bladder surgery Stented coronary artery Family History Family History Father Alcohol abuse Throat cancer Diabetes mellitus Liver problem Mother Heart problem Sibling Alcohol abuse Other Alcohol abuse Social History Social History Smoking packs per day: 1 Smoking cigarettes per day: 20.0 Years smoked: 30 Smoking pack-years: 30.00 Smoking status: Former smoker Tobacco type: cigarettes Smoking end date: 04/09/20 Alcohol intake: current Substance use: never Substance use type: does not use Lack of Transportation: No Lack of Food: Never True Current Housing: I Have Housing Concerned About Future Housing: No Difficulty Paying Gas/Electric Bills: No Difficulty Paying for Meds: No Currently Unemployed: No Education: High School Diploma/GED Difficulty w/ Childcare or Family Care: No Living arrangements: with family Spiritual care concerns: No Exam Const: General: healthy appearing Nutritional Appearance: well nourished Orientation/consciousness: patient oriented x3 Limitations: no limitations Resp: Effort & Inspection: normal respiratory effort Auscultation: clear to auscultation bilaterally Cardio: Rate: regular rate Rhythm: regular rhythm GI: GI Palp: Yes Soft to palpation Auscultation: normal bowel sounds : Other: prolapse cervix Urinary Catheter: Urinary Catheter: patent and draining Back/Spine/Pelvis: Back: no CVA tenderness Skin: General skin exam: normal color Rashes: no rashes Course Course Emergency Course: urinalysis is performed and reviewed with patient, vaginal exam performed which does show a mildly prolapsed cervix. Vital Signs Vital signs: Vital Signs Temperature 36.9 C 07/25/23 17:42 Pulse Rate 83 07/25/23 17:42 Respiratory Rate 15 07/25/23 17:42 Blood Pressure 113/72 07/25/23 17:42 Pulse Oximetry 98 07/25/23 17:42 Oxygen Delivery Room Air 07/25/23 17:42 Temperature 36.9 C 07/25/23 17:42 Pulse Rate 83 07/25/23 17:42 Respiratory Rate 15 07/25/23 17:42 Blood Pressure 113/72 07/25/23 17:42 Pulse Oximetry 98 07/25/23 17:42 Oxygen Delivery Room Air 07/25/23 17:42 Critical Care Time Critical Care Time Critical Care Time: No Discharge Plan Discharge Clinical Impression: Cervix prolapsed into vagina UTI (urinary tract infect
[2023-07-25 18:53] LABS: Bilirubin Urine Negative (Negative); Blood Urine 2+ (Negative); Color Urine Yellow (Yellow); Glucose Urine UA Negative (Negative); Ketones Urine Trace (Negative); Leukocyte Esterase Ur 3+ LEU/UL (Negative); Nitrate Urine Negative (Negative); Protein Urine Negative (Negative)
[2023-07-25 19:08] LABS: Add Urine Microscopic? YES; Amorphous Sediment Urine Moderate; Appearance Urine Cloudy (Clear); Bacteria Urine 3+ /hpf; Squamous Epithelial Cell Urine Few /hpf (Few)
[2023-07-25 19:09] LABS: Mucus Urine Moderate /lpf
[2023-07-25] MEDS: NITROFURANTOIN MONOHYD MACROCR 100 MG CAP PO (19:17)
[2023-07-25 19:29] VITALS: BP 110/76; PULSE 74; RESP 18; TEMP 36.6; O2SAT 97
--- NOTE | 2023-07-28 13:45 | PC.NURSE ---
Final urine culture report,no growth, mixed genital christi isolated, no further action or treatment needed at this time per Dr. Walters.
== END 2023-07-25 19:29 | disposition home or self-care (01) ==
PROVIDERS: Emergency Provider Emergency Medicine; PCP Family Medicine
DX: N30.00 Acute cystitis without hematuria (principal); I25.10 Atherosclerotic heart disease of native coronary artery without angina pectoris; E78.5 Hyperlipidemia, unspecified; F32.A Depression, unspecified; I25.2 Old myocardial infarction; I51.9 Heart disease, unspecified; F41.9 Anxiety disorder, unspecified; Z95.5 Presence of coronary angioplasty implant and graft; Z79.82 Long term (current) use of aspirin; Z87.891 Personal history of nicotine dependence; Z79.02 Long term (current) use of antithrombotics/antiplatelets; Z79.85 Long-term (current) use of injectable non-insulin antidiabetic drugs
CPT/HCPCS: 81001; 87086; 87088; 99283; A9270

== ENCOUNTER 2023-12-15 09:14 | Emergency (ER) | payer MEDICARE, SELFPAY ==
[2023-12-15 09:20] VITALS: BP 102/69; PULSE 90; RESP 16; TEMP 36.5; O2SAT 100
--- NOTE | 2023-12-15 09:49 | ED.SKABFB ---
HPI - Skin/Abscess/Foreign Bdy General Chief complaint: Skin/Abscess/Foreign Body Stated complaint: Insect Bite Time Seen by Provider: 12/15/23 09:49 Source: patient Mode of arrival: ambulatory Limitations: no limitations History of Present Illness HPI narrative: 63-year-old female presented for complaint of possible insect bite to the right upper posterior thigh for about 2 days. She states the white center of the bite opened last night while in the shower and it drained some fluid. Denies any other skin concerns. Denies nausea, vomiting, fevers or chills. Has not applied anything to the site. Related Data Home Medications Medication Instructions Recorded Confirmed aspirin 81 mg tablet,delayed 81 mg PO DAILY 06/19/20 12/26/22 release (Adult Low Dose Aspirin) Allergies Allergy/AdvReac Type Severity Reaction Status Date / Time No Known Allergies Allergy Verified 09/22/23 07:40 Review of Systems Review of Systems: CONSTITUTIONAL: Denies body aches, fever, chills, or sweats. EYES: Denies visual changes, redness, or discharge. ENT: Denies rhinorrhea, congestion CARDIOVASCULAR: Denies chest pain, palpitations, or edema. RESPIRATORY: Denies cough or dyspnea. GASTROINTESTINAL: Denies abdominal pain, nausea, vomiting, or diarrhea. SKIN: per HPI MUSCULOSKELETAL: Denies back pain, joint pain, or myalgia. NEUROLOGIC: Denies headache, numbness, tingling, or weakness. [facility] Past Medical History Medical History Anxiety CAD (coronary artery disease) Depression Eczema Encounter for administration of vaccine Heart attack Heart disease Mixed dyslipidemia Obesity Surgical History Surgical History H/O foot surgery History of bladder surgery Stented coronary artery Family History Family History Father Alcohol abuse Throat cancer Diabetes mellitus Liver problem Mother Heart problem Sibling Alcohol abuse Other Alcohol abuse Social History Social History Smoking packs per day: 1 Smoking cigarettes per day: 20.0 Years smoked: 30 Smoking pack-years: 30.00 Smoking status: Former smoker Tobacco type: cigarettes Smoking end date: 04/09/20 Alcohol intake: current Substance use: never Substance use type: does not use Lack of Transportation: No Lack of Food: Never True Current Housing: I Have Housing Concerned About Future Housing: No Difficulty Paying Gas/Electric Bills: No Difficulty Paying for Meds: No Currently Unemployed: No Education: High School Diploma/GED Difficulty w/ Childcare or Family Care: No Living arrangements: with family Spiritual care concerns: No Comments At time of signature, I have reviewed and agree with nursing past medical, surgical, social and family history unless otherwise noted. Please see nursing chart for further information. There is no relevant family history pertinent to the presenting complaint Exam Narrative: GENERAL: Well-appearing ENT: Mucous membranes moist. Oropharynx without edema, erythema or lesions. NECK: Supple. No lymphadenopathy CHEST: Clear to auscultation. HEART: Regular rate and rhythm. SKIN: Warm, dry. right posterior/lateral upper thigh with 2cm area of firm erythema c/w abscess, no fluctuance or active drainage. Tender. Mild light erythema surrounding the site. NEURO: Alert and oriented x3. Course Course Emergency Course: Patient is aware of diagnosis, understands and agrees to treatment plan. Anticipatory guidance given. Patient agrees to follow-up as directed and is aware of reasons to seek care at the emergency department. Portions of this record may have been created with voice recognition software Level of Care: Express Care Visit Vital Signs Vital signs
== END 2023-12-15 10:04 | disposition home or self-care (01) ==
PROVIDERS: Emergency Provider Nurse Practitioner Family; PCP Family Medicine
DX: L02.415 Cutaneous abscess of right lower limb (principal); Z87.891 Personal history of nicotine dependence; I25.10 Atherosclerotic heart disease of native coronary artery without angina pectoris; E78.2 Mixed hyperlipidemia; E66.9 Obesity, unspecified; Z68.29 Body mass index [BMI] 29.0-29.9, adult; I25.2 Old myocardial infarction; Z95.5 Presence of coronary angioplasty implant and graft; Z79.82 Long term (current) use of aspirin
CPT/HCPCS: 99213; G0463

== ENCOUNTER 2024-04-18 10:24 | Outpatient (CLI) | payer OTHER, SELFPAY ==
--- OUTSIDE RECORDS SUMMARY | 2024-04-18 11:18 | XMS_ITS | Referral Summary ---
Author Organization [facility] Healthcare Address [address] [place] [address] Care Team Providers Care Bleacher [employer] Name Role Phone Adriano Stiles MD Primary Care Provider [phone] Encounters Date Type Department Care Team Description 02/01/2024 Telephone [facility] Medical [facility] Cardiology [address] [place] [address] Rip Pang MD from Last 3 Months Allergies No known active allergies Medications clopidogreL (PLAVIX) 75 mg tabletIndication s:myocardial infarction prevention,48 hours Take 1 tablet (75 mg total) by mouth every morning 1 Active isosorbide mononitrate ER (IMDUR) 60 mg 24 hr tablet Take 1.5 tablets (90 mg total) by mouth every morning 1 Active rOPINIRole (REQUIP) 2 mg tablet Take 1 tablet (2 mg total) by mouth 2 (two) times a day 1 Active traZODone (DESYREL) 50 mg tablet Take 2 tablets (100 mg total) by mouth nightly as needed 1 Active rosuvastatin (CRESTOR) 40 mg tablet Take 1 tablet (40 mg total) by mouth daily after dinner 1 Active busPIRone (BUSPAR) 5 mg tablet Take 1 tablet (5 mg total) by mouth 2 (two) times a day [address] (CYMBALTA) 60 mg capsule Take 1 capsule (60 mg total) by mouth 2 (two) times a day 1 Active nitroglycerin (NITROSTAT) 0.4 mg SL tabletIndication s:Coronary artery disease involving [place] coronary artery of [place] heart without angina pectoris Place 1 tablet (0.4 mg total) under the tongue every 5 (five) minutes as needed for chest pain May repeat dose q 5 min, up to 3 doses total 90 tablet 2 4 12/14/19 25 Active ferrous sulfate 325 mg (65 mg of elemental iron) tabletIndication s:Iron Deficiency Anemia Take 1 tablet (325 mg total) by mouth every morning Active metoprolol XL (TOPROL-XL) 50 mg extended release tablet Take 1 tablet (50 mg total) by mouth 2 (two) times a day Active Wegovy 1.7 mg/0.75 mL auto-injectorInd ications:Wt Loss Mgmt, Pt with BMI 27-29 & Wt-Related Comorbidity Inject 0.75 mL (1.7 mg total) under the skin every 7 days Takes on Thudatys As of 12/30/23 patient's last dose was 12/28/23 4 Active HYDROcodone-acet aminophen (NORCO) 5-325 mg per tabletIndication s:Pain Take 1-2 tablets by mouth every 4 (four) hours as needed for pain for up to 30 doses 20 tablet 4 Active docusate sodium (COLACE) 100 mg capsuleIndicatio ns:constipation Take 1 capsule (100 mg total) by mouth 2 (two) times a day For constipation. 40 capsule 4 Active Active Problems Problem Noted Date Diagnosed Date Midline cystocele 12/10/2023 Rectocele, female 12/10/2023 Stress incontinence 12/10/2023 BMI 34.0-34.9,adult 12/02/2021 History of COVID-19 05/13/2021 Coronary artery disease invo lving [place] coronary artery of [place] heart without angina pectoris 01/10/2021 Essential hypertension 01/10/2021 History of tobacco use 01/10/2021 Mixed hyperlipidemia 01/10/2021 Social History Tobacco Use Types Packs/Day Years Used Date Smoking Tobacco: Former Cigarettes Q uit: 04/2020 Smokeless Tobacco: Never Tobacco Cessation:Counseling Given: Not Answered Comments:smoked for 30 yrs AUDIT-C Answer Date Recorded Q1: How often do you have a drink containing alc ohol? Never 01/05/2024 Q2: How many drinks containi ng alcohol do you have on a typical day when you are drinking? 1 or 2 01/05/2024 Q3: How often do you have six or more drinks on one occasion? Never 01/05/2024 Personal Safety Answer Date Recorded Have you ever been in or are you currently in a harmful physical or emotional relationship or is someone making you feel afraid or unsafe? Denies 01/05/2024 Comments No Sex and Gender Information Value Date Recorded Sex Assigned at Not on file Legal Sex Female 12:10 PM CDT Gender Identity Not on file Sexual Orientation Not on file Last Filed Vital Signs Vital Sign Reading Time Taken Comments Blood Pressure 115/97 01/05/2024 2:40 PM CDT Pulse 72 01/05/2024 2:40 PM CDT Temperature 37.1 C (98.7 F) 01/05/2024 2:06 PM CDT Respiratory Rate 17 01/05/2024 2:40 PM CDT Oxygen Saturation 97% 01/05/2024 2:40 PM CDT Inhaled Oxygen Concentration - - Weight 83.1 kg (183 lb 3.2 oz) 01/05/2024 12:00 PM CDT Height 170.2 cm (5' 7 ) 01/05/2024 12:00 PM CDT Body Mass Index 28.69 01/05/2024 12:00 PM CDT Plan of Treatment Not on file Medical Devices Implanted Type Area Upper Trimmer Device Identifier Shelf Expiration Date Model / Serial / Lot [employer] Sling Urinary Incontinence Female Stress Short Desara Blue Nora-[id number] - [id number] Implanted:Qty: 1 on 01/05/2024 by Harjeet Francisco MD at [facility] N/A: Pelvis [employer] 01/02/2026 NORA-DS01BS / / [id number] Insurance [facility] [employer] [facility] [employer] Care Teams [employer] Relationship Specialty Start Date End Date Adriano Stiles MD PCP - General Family Practice 01/10/21
--- OUTSIDE RECORDS SUMMARY | 2024-04-18 11:18 | XMS_ITS | Continuity of Care Document ---
Author Organization [facility] Address [address] [place] [address] Phone Care Team Providers Care Foam Machine Operator Name Role Phone Coy Goldsmith MD Unavailable Unavailable Procedures Procedure Date OFFICE/OUTPATIENT VISIT, [facility] ANESTH, LOW INTESTINE SCOPE LESION REMOVE COLONOSCOPY LESION REMOVAL COLONOSCOPY TISSUE EXAM BY PATHOLOGIST OFFICE/OUTPATIENT VISIT, [facility] Advance Directives Directive Yes / No Effective Date File Name No Information Encounters Encounter Description Practice Location Reason(s) For Visit Diagnoses Date Provider Providers Copied on Encounter OFFICE/OUTPAT IENT VISIT, [facility], [address] [place], [place], [id number], tel:[phone] Main Office No Information [address] Agus Cespedes. [address] [place], [address], . tel:[phone] Referring Provider: Buster Chang [address] [place] [address] [facility] , [place], [address]. tel:[phone] [facility], [address] [place], [place], [id number], tel:[phone] [facility] No Information No Information Referring Provider: Buster Chang [address] [place] [address] [facility] , [place], [address]. tel:[phone] [facility], [address] [place], [place], [id number], tel:[phone] [facility] No Information 2 [address] Goldsmith [address]. [address] [place], [place], [facility], . tel:[phone] Referring Provider: Buster Chang [address] [place] [address] [facility] , [place], [address]. tel:[phone] [facility], [address] [place], [place], [address] [place] [address], tel:[phone] Main Office No Information [phone] [address], [facility], . tel:[phone] Referring Provider: Buster Chang [address] [place] [address] Jacye [facility] , [facility] [address]. tel:[phone] OFFICE/OUTPAT IENT VISIT, [facility], [address], [place], [address] [place] [address], tel:[phone] Main Office No Information 4 Goldsmith [address] [place], [place], [facility], . tel:[phone] Referring Provider: Buster Chang [address] [place] [address] [facility] , [place], [place], [facility]. tel:[phone] Family History Family Member Type Diagnosis Age At Onset No Information Payers Payer name Insurance type Covered democrat ID Yudith taverasdiamond(s) [employer] CI [id number] Social History Type Description Quantity Date Captured Comments Sex Female Smoking Status No Information Chief Complaint And Reason For Visit No Information Reason For Referral Reason For Referral No Information History Of Present Illness Encounter Date Complaint History Of Prese nt Illness No Information Functional Status Date Functional Assessmen t No Information Instructions Date Instruction Additional Infor mation No Information Assessments Type Assessment Date No Information Patient Care Teams Name Effective Dates (start - stop) Status Members No Information
--- OUTSIDE RECORDS SUMMARY | 2024-04-18 11:18 | XMS_ITS | Clinical Summary ---
Author Organization [facility] Healthcare Address [address] [place] [address] Care Team Providers Care Boxing Instructor Name Role Phone Adriano Stiles MD Primary Care Provider [phone] Allergies No known active allergies Medications clopidogreL [...] mg SL tabletIndication s:Coronary artery disease involving [place] coronary artery of [place] heart without angina pectoris Place 1 tablet [...] the skin every 7 days Takes on Mondatys As of 12/30/23 patient's last dose was [...] COVID-19 05/13/2021 Coronary artery disease invo lving [place] coronary artery of [place] heart without angina pectoris 01/10/2021 Essential hypertension 01/10/2021 History of tobacco use 01/10/2021 Mixed hyperlipidemia 01/10/2021 Encounters Date Type Department Care Team Description 02/01/2024 Telephone [facility] Cardiology [address] [place] [address] Rip Pang MD from Last 3 Months Surgical History Surgery Date Site/Laterality Comments BLADDER SURGERY SHOULDER SURGERY Medical History Medical History Date Comments CAD (coronary artery disease) Anxiety and depression Arthritis Tachycardia Family History Medical History Relation Name Comments Throat cancer Father No Known Problems Mother Relation Name Status Comments Father (Age 42) Mother Alive Social History Tobacco Use Types Packs/Day Years [...] on file Sexual Orientation Not on file Obstetrics History Last Filed Vital Signs Vital Sign Reading [...] 01/05/2024 12:00 PM CDT Plan of Treatment Health Maintenance Due Date Last Done Comments Breast Cancer Screening-Mammogram 1961 Cervical Cancer Screening 1961 Colon Cancer Screening-Colonoscopy 1961 Depression Screening 1961 Hepatitis C Screening 1961 DTaP/Tdap/Td Vaccine (1 - Tdap) 1972 Hepatitis B Screening 06/22/1979 Regular Well Visit/Exam 18-64 06/22/1979 Zoster Vaccine (2 of 3) 01/29/2021 12/04/2020 Covid-19 Vaccine (3 - 2023-2 5 season) 2023 09/07/2020, 08/09/2020 Influenza Vaccine (#1) 2023 Pneumococcal vaccine <65 Aged Out No longer eligible based on patient's age to complete this topic Medical Devices Implanted Type Area Micro Photographer Device Identifier Shelf Expiration Date Model / Serial / Lot [employer] Sling Urinary Incontinence Female Stress Short Desara Blue Nora-[id number] - [id number] Implanted:Qty: 1 on 01/05/2024 by Harjeet Francisco MD at [facility] N/A: Pelvis [employer] 01/02/2026 NORA-DS01BS / / [id number] Insurance [facility] [employer] Care Teams Boxing Instructor Relationship Specialty Start Date End Date Adriano Stiles MD PCP - General Family Practice 01/10/21
[2024-04-18 19:00] LABS: Hematocrit 40.7 % (37.0-47.0); Hemoglobin 12.6 g/dL (12.0-15.0); Mean Corpuscular Hemoglobin 29.1 pg (26-34); Mean Platelet Volume 9.9 fl (7.4-10.4); Platelet Count Result 325 k/mm3 (150-375); Red Blood Count 4.33 M/mm3 (4.2-5.4); Red Cell Distribution Width 14.8 % (11.5-14.5); White Blood Count 6.2 K/mm3 (4.5-10.0)
[2024-04-18 19:16] LABS: Alanine Aminotransferase 15 U/L (6-35); Albumin Level 3.4 g/dL (3.5-5.1); Alkaline Phosphatase 128 U/L (38-126); Anion Gap 4 mmol/L (4-12); Bilirubin,Total 0.4 mg/dL (0.2-1.3); Calcium 9.4 mg/dL (8.4-10.2); Carbon Dioxide 29 mmol/L (22-30); Chloride 106 mmol/L (98-107); Estimated Glomerular Filt Rate > 60; Glucose 92 mg/dL (65-110); Magnesium 2.1 mg/dL (1.6-2.3); Potassium 4.2 mmol/L (3.4-5.0); Sodium 139 mmol/L (137-145)
[2024-04-18 19:41] LABS: Vitamin D 25 Hydroxy 35.6 ng/mL
[2024-04-18 19:44] LABS: Thyroid Stimulating Hormone 0.749 uIU/mL (0.465-4.680)
[2024-04-18 20:45] LABS: Aspartate Amino Transferase 40 U/L (14-36); Blood Urea Nitrogen 24 mg/dL (7-17)
== END 2024-04-18 10:25 | disposition home or self-care (01) ==
PROVIDERS: PCP Family Medicine; Visit Provider Family Medicine
DX: F41.9 Anxiety disorder, unspecified (principal); R25.1 Tremor, unspecified; R25.9 Unspecified abnormal involuntary movements; G89.29 Other chronic pain; E55.9 Vitamin D deficiency, unspecified; I25.10 Atherosclerotic heart disease of native coronary artery without angina pectoris; M54.9 Dorsalgia, unspecified; Z87.891 Personal history of nicotine dependence
CPT/HCPCS: 36415; 80053; 82306; 82607; 83735; 84443; 85027

== ENCOUNTER 2024-06-30 10:22 | Outpatient (CLI) | payer OTHER, SELFPAY ==
--- NOTE | ~2024-06-30 | XR_ITS ---
Lumbosacral Spine: AP, oblique, and lateral views Clinical History: Pain Findings: The normal lordotic curve is maintained. 9 mm anterolisthesis of L4 over L5 present. Interv ertebral disc spaces are relatively well-preserved. There is moderate to advanced facet arthropathy t hroughout the lumbar spine, worst at L4-L5 and L5-S1. The sacroiliac joints are normally outlined. Impression: Moderate degenerative spondylosis, as above. 9 mm anterolisthesis of L4 over L5. Reviewed, dictated and finalized at location M. Impression: Moderate degenerative spondylosis, as above. 9 mm anterolisthesis of L4 over L5.
--- NOTE | ~2024-06-30 | XR_ITS ---
XR sacroiliac joints min 3V Ordering provider: Francine Munoz MD History: . Rheumatoid arthritis, pain . Comparison: None. FINDINGS: BONES: No acute fracture or dislocation. JOINTS: The bilateral sacroiliac joint spaces shows slight narrowing of the joint spaces with sacroil iitis. No bony fusion of the sacroiliac joints or bony erosions. Mild to moderate osteoarthritic changes of both hips. Degenerative changes of the spine. SOFT TISSUES: Unremarkable. IMPRESSION: NO ACUTE OSSEOUS ABNORMALITY. Bilateral sacroiliacs. Reviewed, dictated and finalized at location A.
--- NOTE | ~2024-06-30 | XR_ITS ---
Thoracic spine: Clinical Indication: Rheumatoid arthritis AP and lateral views were performed. No fracture is seen. There is normal alignment of the vertebrae. There is mild to moderate degenerat betty disc narrowing through the mid thoracic spine. Paravertebral soft tissues appear normal. Impression: Mild to moderate degenerative disc narrowing through the mid thoracic spine. Reviewed, dictated and finalized at location . Impression: Mild to moderate degenerative disc narrowing through the mid thoracic spine.
--- OUTSIDE RECORDS SUMMARY | 2024-06-30 11:41 | XMS_ITS | Referral Summary ---
Author Organization [facility] Healthcare Address [address] [place] [address] Care Team Providers Care Musical Instrument Maker Or Repairer Name Role Phone Adriano Stiles MD Primary Care Provider [phone] Allergies No known active allergies Medications clopidogreL [...] mg SL tabletIndication s:Coronary artery disease involving [place] coronary artery of [place] heart without angina pectoris Place 1 tablet [...] COVID-19 05/13/2021 Coronary artery disease invo lving [place] coronary artery of [place] heart without angina pectoris 01/10/2021 Essential hypertension [...] on file Medical Devices Implanted Type Area Gusset Edger Device Identifier Shelf Expiration Date Model / Serial / Lot [employer] Sling Urinary Incontinence Female Stress Short Desara Blue Nora-Ds01bs - [id number] Implanted:Qty: 1 on 01/05/2024 by Harjeet Francisco MD at [facility] N/A: Pelvis [employer] 01/02/2026 NORA-DS01BS / / [id number] Insurance [facility] Care Teams Musical Instrument Maker Or Repairer Relationship Specialty Start Date End Date Adriano Stiles MD PCP - General Family Practice 01/10/21
--- OUTSIDE RECORDS SUMMARY | 2024-06-30 11:42 | XMS_ITS | Clinical Summary ---
Author Organization [facility] Healthcare Address [address] [place] [address] Care Team Providers Care Coagulating Operator Name Role Phone Adriano Stiles MD Primary Care Provider [phone] Allergies No known active allergies Medications clopidogreL [...] mg SL tabletIndication s:Coronary artery disease involving [place] coronary artery of [place] heart without angina pectoris Place 1 tablet [...] COVID-19 05/13/2021 Coronary artery disease invo lving [place] coronary artery of [place] heart without angina pectoris 01/10/2021 Essential hypertension 01/10/2021 History of tobacco use 01/10/2021 Mixed hyperlipidemia 01/10/2021 Surgical History Surgery Date Site/Laterality Comments BLADDER [...] 5 season) 2023 09/07/2020, 08/09/2020 Influenza Vaccine (Season Ended) 2024 Pneumococcal vaccine <65 Aged Out No longer eligible based on patient's age to complete this topic Medical Devices Implanted Type Area [employer] Device Identifier Shelf Expiration Date Model / Serial / Lot [employer] Sling Urinary Incontinence Female Stress Short Desvenessa Manuel [id number] - [id number] Implanted:Qty: 1 on 01/05/2024 by Harjeet Francisco MD at [facility] N/A: Pelvis [employer] 01/02/2026 [id number] / / [id number] Insurance [facility] [employer] [facility] [employer] Care Teams Coagulating Operator Relationship Specialty Start Date End Date Adriano Stiles MD PCP - General Family Practice 01/10/21
--- OUTSIDE RECORDS SUMMARY | 2024-06-30 11:43 | XMS_ITS | Continuity of Care Document ---
Author Organization [facility] Address [address] [place] [address] Phone Care Team Providers Care Pneumatic Systems Operator Name Role Phone Coy Goldsmith MD Unavailable Unavailable Procedures Procedure Date OFFICE/OUTPATIENT VISIT, [facility] ANESTH, LOW INTESTINE SCOPE LESION REMOVE COLONOSCOPY LESION REMOVAL COLONOSCOPY TISSUE EXAM BY PATHOLOGIST OFFICE/OUTPATIENT VISIT, [facility] Advance Directives Directive Yes / No Effective Date File Name No Information Encounters Encounter Description Practice Location Reason(s) For Visit Diagnoses Date Provider Providers Copied on Encounter OFFICE/OUTPAT IENT VISIT, [facility], [address] [place], [place], [id number], tel:[phone] Main Office No Information 4 Agus Cespedes. [address] [place], [address], . tel:[phone] Referring Provider: Buster Chang [address] [place] [address] [facility] , [place], [address]. tel:[phone] [facility], [address] [place], [place], [id number], tel:[phone] [facility] No Information No Information Referring Provider: Buster Chang [address] [place] [address] [facility] , [place], [address]. tel:[phone] [facility], [address] [place], [place], [id number], tel:[phone] [facility] No Information 2 4 Goldsmith Palep. [address] [place], [place], [facility], . tel:[phone] Referring Provider: Buster Chang [address] [place] [address] [facility] , [place], [address]. tel:[phone] [facility], [address] [place], [place], [address] [place] [address], tel:[phone] Main Office No Information 0 8-201 4 Goldsmith [place]. [address] [place], [facility], . tel:[phone] Referring Provider: Buster Chang [address] [place] [address] [facility] , [facility] [address]. tel:[phone] OFFICE/OUTPAT IENT VISIT, [facility], [address], [place], [address] [place] [address], tel:[phone] Main Office No Information 4 Goldsmith Palep. [address] [place], [place], [facility], . tel:[phone] Referring Provider: Buster Chang [address] [place] [address] [facility] , [place], [place], [facility]. tel:[phone] Family History Family Member Type Diagnosis Age At Onset No Information Payers Payer name Insurance type Covered alliance party ID Yudith taverasdiamond(s) [employer] [place] [employer] CI [id number] Social History Type Description Quantity Date Captured [...]
[2024-06-30 19:49] LABS: Cholesterol 197 mg/dL (0-200); HDL Direct 100 mg/dL; Rheumatoid Factor < 12.0 IU/ML (<12); Triglycerides 113 mg/dL (<150)
[2024-06-30 20:01] LABS: LDL Cholesterol Direct 53 mg/dL
[2024-07-04 15:38] LABS: Anti Cyclic Citrullinated Pept <16 UNITS
== END 2024-06-30 10:23 | disposition home or self-care (01) ==
PROVIDERS: PCP Family Medicine; Visit Provider Internal Medicine
DX: M47.814 Spondylosis without myelopathy or radiculopathy, thoracic region (principal); M47.816 Spondylosis without myelopathy or radiculopathy, lumbar region; M47.817 Spondylosis without myelopathy or radiculopathy, lumbosacral region; M06.9 Rheumatoid arthritis, unspecified; E78.5 Hyperlipidemia, unspecified; I25.10 Atherosclerotic heart disease of native coronary artery without angina pectoris; E78.1 Pure hyperglyceridemia; M25.50 Pain in unspecified joint; M79.643 Pain in unspecified hand; M25.40 Effusion, unspecified joint; Z95.5 Presence of coronary angioplasty implant and graft; Z79.899 Other long term (current) drug therapy; M43.16 Spondylolisthesis, lumbar region
CPT/HCPCS: 36415; 72072; 72110; 72202; 80061; 86200; 86430

== ENCOUNTER 2024-07-22 12:37 | Emergency (ER) | payer OTHER, SELFPAY ==
--- OUTSIDE RECORDS SUMMARY | 2024-07-22 21:14 | XMS_ITS | Continuity of Care Document ---
Author Organization [facility] Address [address] [place] [address] Phone Care Team Providers Care Management Aide Name Role Phone Juan Rico MD Unavailable Unavailable Advance Directives Directive Yes / No Effective Date File Name No Information Encounters Encounter Description Practice Location Reason(s) For Visit Diagnoses Date Provider Providers Copied on Encounter [facility], [facility] [place], [place], [id number], tel:[phone] [facility] 3 No Information [address] Trisha Martinez. [address] [place] [address], [facility], [place], [address], . tel:[phone] Referring Provider: Tanesha Banks, [address] [facility] [address] [facility] [address], [address]. tel:[phone] Family History Family Member Type Diagnosis Age At Onset No Information Payers Payer name Insurance type Covered libertarian ID Authoriza tion(s) BCBS POS Adult [facility] [id number] Social History Type Description Quantity Date Captured [...]
--- OUTSIDE RECORDS SUMMARY | 2024-07-22 21:14 | XMS_ITS | Continuity of Care Document ---
Author Organization [facility] Address [address] [place] [address] Phone Care Team Providers Care Complaint Clerk Name Role Phone Coy Goldsmith MD Unavailable Unavailable Procedures Procedure Date OFFICE/OUTPATIENT VISIT, [facility] ANESTH, LOW INTESTINE SCOPE LESION REMOVE COLONOSCOPY LESION REMOVAL COLONOSCOPY TISSUE EXAM BY PATHOLOGIST OFFICE/OUTPATIENT VISIT, [facility] Advance Directives Directive Yes / No Effective Date File Name No Information Encounters Encounter Description Practice Location Reason(s) For Visit Diagnoses Date Provider Providers Copied on Encounter OFFICE/OUTPAT IENT VISIT, [facility], [address] [place], [place], [id number], tel:[phone] Main Office No Information 4 Agus Cespedes. [address] [place], [address], . tel:[phone] Referring Provider: Buster Chang [address] [place] [address] [facility] , [place], [address]. tel:[phone] [facility], [address] [place], [place], [id number], tel:[phone] [facility] No Information No Information Referring Provider: Buster Chang [address] [place] [address] [facility] , [place], [address]. tel:[phone] [facility], [address] [place], [place], [id number], tel:[phone] [facility] No Information 2 4 Goldsmith Palep. [address] [place], [facility], . tel:[phone] Referring Provider: Buster Chang [address] [place] [address] [facility] , [place], [address]. tel:[phone] [facility], [address] [place], [place], [address] [place] [address], tel:[phone] Main Office No Information 0 8-201 4 Goldsmith [place]. [address] [place], [facility], . tel:[phone] Referring Provider: Buster Chang [address] [place] [address] [facility] , [facility] [address]. tel:[phone] OFFICE/OUTPAT IENT VISIT, [facility], [address], [place], [address] [place] [address], tel:[phone] Main Office No Information 4 Goldsmith Palep. [address] [place], [place], [facility], . tel:[phone] Referring Provider: Buster Chang [address] [place] [address] [facility] , [place], [place], [facility]. tel:[phone] Family History Family Member Type Diagnosis Age At Onset No Information Payers Payer name Insurance type Covered libertarian ID Yudith taverasdiamond(s) [employer] CI [id number] Social History Type Description Quantity Date Captured [...]
--- OUTSIDE RECORDS SUMMARY | 2024-07-22 21:15 | XMS_ITS | Encounter Summary ---
Author Organization [facility] Address [address] [place] [address] Care Team Providers Care Clin Nurse Spec Name Role Phone Adriano Stiles MD Primary Care Provider [phone] Reason for Referral * MRI/CAT/PET Scan (Routine) - Closed Specialty Diagnoses / Procedures Referred By Alejandra calix Referred To Contact Radiology Diagnoses Rheumatoid arthritis involving hand, unspecified laterality, unspecified whether rheumatoid factor present (HCC) Procedures MRI Hand Right WO Contrast Francine Munoz MD [address] [place] [address] Phone: tel: fax: [address] [address] Referral ID Status Reason Start Date Expiration Date Visits Re quested Visits Authorized [id number] Closed 07/06/2024 08/05/2025 1 1 Reason for Visit * MRI/CAT/PET Scan (Routine) - Closed Specialty Diagnoses / Procedures Referred By Alejandra calix Referred To Contact Radiology Diagnoses Rheumatoid arthritis involving hand, unspecified laterality, unspecified whether rheumatoid factor present (HCC) Procedures MRI Hand Right WO Contrast Francine Munoz MD [address] [place] [address] Phone: tel: fax: [address] [address] Referral ID Status Reason Start Date Expiration Date Visits Re quested Visits Authorized [id number] Closed 07/06/2024 08/05/2025 1 1 Encounter Details Date Type Department Care Team (Latest Contact Info) Description 07/21/2024 7:53 AM CDT - 07/21/2024 11:59 PM CDT Hospital Encounter [facility] [address] [place] [address] Rheumatoid arthritis involving hand, unspecified laterality, unspecified whether rheumatoid factor present (HCC) Discharge Disposition: Discharge to home or self care Social History Tobacco Use Types Packs/Day Years Used Date Smoking Tobacco: Former Cigarettes Q uit: 04/2020 Smokeless Tobacco: Never Comments:smoked for 30 yrs AUDIT-C Answer Date [...] making you feel afraid or unsafe? Denies 07/22/2024 Comments No Sex and Gender Information Value Date Recorded Sex Assigned at Not on file Legal Sex Female 12:10 PM CDT Gender Identity Not on file Sexual Orientation Not on file documented as of this encounter Medications at Time of Discharge busPIRone (BUSPAR) 5 mg tablet Take 1 tablet (5 mg total) by mouth 2 (two) times a day 12/26/2020 clopidogreL (PLAVIX) 75 mg tabletIndications :myocardial infarction prevention,48 hours Take 1 tablet (75 mg total) by mouth every morning 12/20/[address] (CYMBALTA) 60 mg capsule Take 1 capsule (60 mg total) by mouth 2 (two) times a day 10/05/2020 ferrous sulfate 325 mg (65 mg of elemental iron) tabletIndications :Iron Deficiency Anemia Take 1 tablet (325 mg total) by mouth every morning HYDROcodone-aceta minophen (NORCO) 5-325 mg per tabletIndications :Pain Take 1-2 tablets by mouth every 4 (four) hours as needed for pain for up to 30 doses 20 tablet 01/05/2024 isosorbide mononitrate ER (IMDUR) 60 mg 24 hr tablet Take 1.5 tablets (90 mg total) by mouth every morning 12/04/2020 metoprolol XL (TOPROL-XL) 50 mg extended release tablet Take 1 tablet (50 mg total) by mouth 2 (two) times a day nitroglycerin (NITROSTAT) 0.4 mg SL tabletIndications :Coronary artery disease involving [place] coronary artery of [place] heart without angina pectoris Place 1 tablet (0.4 mg total) under the tongue every 5 (five) minutes as needed for chest pain May repeat dose q 5 min, up to 3 doses total 90 tablet 2 12/14/2023 rOPINIRole (REQUIP) 2 mg tablet Take 1 tablet (2 mg total) by mouth 2 (two) times a day 12/04/2020 rosuvastatin (CRESTOR) 40 mg tablet Take 1 tablet (40 mg total) by mouth daily after dinner 12/15/2020 traZODone (DESYREL) 50 mg tablet Take 2 tablets (100 mg total) by mouth nightly as needed 12/26/2020 Wegovy 1.7 mg/0.75 mL auto-injectorIndi cations:Wt Loss Mgmt, Pt with BMI 27-29 & Wt-Related Comorbidity Inject 0.75 mL (1.7 mg total) under the skin every 7 days Takes on Mondatys As of 12/30/23 patient's last dose was 12/28/23 12/14/2023 documented as of this encounter Discharge Disposition Disposition Code Departure Means Destination Discharge to home or self care documented in this encounter Plan of Treatment Not on file documented as of this encounter Procedures Procedure Name Priority Date/Time Associated Diagnosis Comments MRI HAND RIGHT WO CONTRAST Schedule Routine, Read Routine (OP Routine) 07/21/2024 8:57 AM CDT Rheumatoid arthritis involving hand, unspecified laterality, unspecified whether rheumatoid factor present (HCC) documented in this encounter Results * MRI Hand Right WO Contrast (07/21/2024 8:57 AM CDT) Anatomical Region Laterality Modality Upper Extremities Right Magnetic Reson ance 07/21/2024 9:30 AM CDT Narrative 07/21/2024 9:44 AM CDT EXAM DESCRIPTION: MRI HAND RIGHT WO CONTRAST REASON FOR STUDY: Rheumatoid arthritis for 2 years. Pain. TECHNIQUE: Multiplanar, multisequence MRI of the right hand was performed without contrast. COMPARISON: None FINDINGS: Bones: No marrow edema or fracture. Joint Effusion: Small joint effusion index finger metacarpophalangeal articulation. Articular Surfaces: Mild arthritic changes radiocarpal intercarpal and 1st carpometacarpal articulation. Periarticular erosions are seen involving the index middle ring and small finger metacarpal head. Flexor Tendons: Intact. No tendinopathy. Extensor Tendons: Intact. No tendinopathy. Ligaments: Collateral ligaments and flexor pulleys are intact. IMPRESSION: Mild arthritic changes radiocarpal intercarpal and 1st carpometacarpal articulation. Periarticular erosions involving the index middle ring and small finger metacarpal head. Small joint effusion index finger metacarpophalangeal articulation. THIS IS AN ELECTRONICALLY VERIFIED FINAL REPORT 07/21/2024 9:44 AM - Electronically signed by Vern Garcia M.D. JA: NEO Report ID: [id number] Reading Location: [place] [address] Procedure Note Vern Garcia MD - 07/21/2024 EXAM DESCRIPTION: MRI HAND RIGHT WO CONTRAST REASON FOR STUDY: Rheumatoid arthritis for 2 years. Pain. TECHNIQUE: Multiplanar, multisequence MRI of the right hand wasperformed without contrast. COMPARISON: None FINDINGS: Bones: No marrow edema or fracture. Joint Effusion: Small joint effusion index finger metacarpophalangeal articulation. Articular Surfaces: Mild arthritic changes radiocarpal intercarpal and1st carpometacarpal articulation. Periarticular erosions are seen involvingthe index middle ring and small finger metacarpal head. Flexor Tendons: Intact. No tendinopathy. Extensor Tendons: Intact. No tendinopathy. Ligaments: Collateral ligaments and flexor pulleys are intact. IMPRESSION: Mild arthritic changes radiocarpal intercarpal and 1st carpometacarpal articulation. Periarticular erosions involving the index middle ring and small finger metacarpal head. Small joint effusion index finger metacarpophalangeal articulation. THIS IS AN ELECTRONICALLY VERIFIED FINAL REPORT 07/21/2024 9:44 AM - Electronically signed by Vern Garcia M.D. JA: NEO Report ID: [id number] Reading Location: [id number] Francine Munoz MD IMG MRI PROCEDURES Final Resul t documented in this encounter Visit Diagnoses Diagnosis Rheumatoid arthritis involving hand, unspecified laterality, unspecified whether rheumatoid factor present (HCC) documented in this encounter Care Teams Clin Nurse Spec Relationship Specialty Start Date End Date Adriano Stiles MD PCP - General Family Practice 01/10/21 documented as of this encounter
--- OUTSIDE RECORDS SUMMARY | 2024-07-22 21:15 | XMS_ITS | Referral Summary ---
Author Organization [facility] Healthcare Address [address] [place] [address] Care Team Providers Care Charter Pilot Name Role Phone Adriano Stiles MD Primary Care Provider [phone] Encounters Date Type Department Care Team Description 07/22/2024 3:47 PM CDT - 07/22/2024 6:24 PM CDT Emergency [facility] Emergency Department [address] [place] [id number] Ernst Hobbs MD Tonsillar abscess (Primary Dx) Discharge Disposition: Discharge to home or self care 07/21/2024 7:53 AM CDT - 07/21/2024 11:59 PM CDT Hospital Encounter [address] [address] Rheumatoid arthritis involving hand, unspecified laterality, unspecified whether rheumatoid factor present (HCC) Discharge Disposition: Discharge to home or self care 07/21/2024 7:53 AM CDT - 07/21/2024 11:59 PM CDT Hospital Encounter [address] [address] Rheumatoid arthritis involving hand, unspecified laterality, unspecified whether rheumatoid factor present (HCC) Discharge Disposition: Discharge to home or self care from Last 3 Months Allergies No known active allergies Medications clopidogreL (PLAVIX) 75 mg tabletIndication s:myocardial infarction prevention,48 hours Take 1 tablet (75 mg total) by mouth every morning Active isosorbide mononitrate ER (IMDUR) 60 mg [...] mg SL tabletIndication s:Coronary artery disease involving [place] coronary artery of [place] heart without angina pectoris Place 1 tablet [...] day For constipation. 40 capsule 4 Active amoxicillin-clav ulanate (AUGMENTIN) 875-125 mg per tablet Take 1 tablet by mouth every 12 (twelve) hours for 10 days 20 tablet 5 08/02/19 25 Active methylPREDNISolo ne (MEDROL DOSEPACK) 4 mg Dosepack Take as directed on package 1 packet 5 07/29/19 25 Active Active Problems Problem Noted Date Diagnosed Date Midline cystocele 12/10/2023 Rectocele, female 12/10/2023 Stress incontinence 12/10/2023 BMI 34.0-34.9,adult 12/02/2021 History of COVID-19 05/13/2021 Coronary artery disease invo lving [place] coronary artery of [place] heart without angina pectoris 01/10/2021 Essential hypertension [...] Sign Reading Time Taken Comments Blood Pressure 129/76 07/22/2024 5:00 PM CDT Pulse 72 07/22/2024 5:00 PM CDT Temperature 36.7 C (98 F) 07/22/2024 2:11 PM CDT Respiratory Rate 14 07/22/2024 5:00 PM CDT Oxygen Saturation 99% 07/22/2024 5:00 PM CDT Inhaled Oxygen Concentration - - Weight 66.2 kg (146 lb) 07/22/2024 2:11 PM CDT Height 168.9 cm (5' 6.5 ) 07/22/2024 2:11 PM CDT Body Mass Index 23.21 07/22/2024 2:11 PM CDT Plan of Treatment Not on file Medical Devices Implanted Type Area Php Consultant Device Identifier Shelf Expiration Date Model / Serial / Lot Zannel Sling Urinary Incontinence Female Stress Short Desara Blue [id number] - [id number] Implanted:Qty: 1 on 01/05/2024 by Harjeet Francisco MD at [facility] N/A: [employer] 01/02/2026 [id number] / / [id number] Procedures Procedure Name Priority Date/Time Associated Diagnosis Comments STREPTOCOCCUS GROUP A PCR STAT 07/22/2024 4:[address] SOFT TISSUE NECK W CONTRAST ED 07/22/2024 3:31 PM CDT EGFR STAT 07/22/2024 2:48 PM CDT DIFFERENTIAL AUTO STAT 07/22/2024 2:4 8 PM CDT COMPREHENSIVE METABOLIC PANEL STAT 07/22/2024 2:48 PM CDT CBC WITH AUTO DIFFERENTIAL STAT 07/22/2024 2:48 PM CDT MRI HAND RIGHT WO CONTRAST Schedule Routine, Read Routine (OP Routine) 07/21/2024 8:57 AM CDT Rheumatoid arthritis involving hand, unspecified laterality, unspecified whether rheumatoid factor present (HCC) MRI HAND LEFT WO CONTRAST Schedule Routine, Read Routine (OP Routine) 07/21/2024 8:57 AM CDT Rheumatoid arthritis involving hand, unspecified laterality, unspecified whether rheumatoid factor present (HCC) from Last 3 Months Results * Streptococcus Group A PCR Throat (07/22/2024 4:20 PM CDT) Strep A DNA Not Detected Not Detected Comment: This test is performed using the [employer] Xpert Group A Streptococcal Assay. This is a qualitative, real-time PCR assay that detects Group A Strep using throat specimens from patients suspected of having streptococcal pharyngitis. This assay does not detect other beta-hemolytic streptococci including Group C or Group G. Group C and G have been associated with pharyngitis and, occasionally, acute nephritis but do not cause rheumatic fever. If suspected, order Throat Culture, Routine. This assay has been cleared by the US Food and Drug Administration, and its performance characteristics have been verified by the performing laboratory. Throat 07/22/2024 4:20 PM CDT 07/22/2024 4:22 PM CDT Ernst Hobbs MD LAB MICROBIOLOGY - GENERAL O RDERABLES Final Result Performing Organization Address City/State/[facility] Co de Phone Number [facility] ([place]) 1 [facility] Department [place] [address] * CT Neck Soft Tissue W Contrast (07/22/2024 3:31 PM CDT) Anatomical Region Laterality Modality Head and Neck N/A Computed Tomogra phy 07/22/2024 3:54 PM CDT Narrative 07/22/2024 4:02 PM CDT EXAM DESCRIPTION: CT SOFT TISSUE NECK W CONTRAST REASON FOR STUDY: Soft tissue infection suspected, neck, xray done Right sided neck pain and difficulty swallowing x 3 days TECHNIQUE: Post IV contrast scanning from skull base through lung apices. Reconstructed MPR images reviewed. All images stored on PACS. Automated exposure control was used as a dose optimization technique for this examination. CONTRAST TYPE/DOSE: 75mL of IOVERSOL 350 MG IODINE/ML INTRAVENOUS SYRINGE injected via intravenous COMPARISON: None FINDINGS: SOFT TISSUE: No mass, edema or inflammatory change. ORAL CAVITY/FLOOR OF MOUTH, PHARYNX, LARYNX, HYPOPHARYNX: There is soft tissue fullness in the oral cavity on the right. Part of the abnormality is a 1.3 cm rim enhancing collection. Surrounding edema extends more inferiorly. The epiglottis and larynx are unremarkable. LYMPHADENOPATHY: No adenopathy. MAJOR SALIVARY GLANDS: No solid or cystic masses. No inflammatory changes. THYROID: Normal size. No nodules greater than 1 cm. VASCULATURE: No apparent critical stenosis or occlusion. INTRACRANIAL/SKULL BASE/INCLUDED ORBITS: Limited intracranial evaluation. No abnormal findings. PARANASAL SINUSES: Well-aerated. CERVICAL SPINE: No significant abnormalities. LUNG APICES: Clear. OTHER: No other significant finding. IMPRESSION: Soft tissue fullness in the oral cavity on the right. There is a 1.3 cm rim enhancing collection. This might represent a small abscess. Correlation with the patient's symptoms and direct visualization are recommended. THIS IS AN ELECTRONICALLY VERIFIED FINAL REPORT 07/22/2024 4:02 PM - Electronically signed by Caleb Vo M.D. RAJESH: RAJESH Report ID: [id number] Reading Location: [place] [address] Procedure Note Rubens Vo MD - 07/22/2024 EXAM DESCRIPTION: CT SOFT TISSUE NECK W CONTRAST REASON FOR STUDY: Soft tissue infection suspected, neck, xray done Right sided neck pain and difficulty swallowing x 3 days TECHNIQUE: Post IV contrast scanning from skull base through lung apices. Reconstructed MPR images reviewed. All images stored on PACS. Automated exposure control was used as a dose optimization technique for this examination. CONTRAST TYPE/DOSE: 75mL of IOVERSOL 350 MG IODINE/ML INTRAVENOUSSYRINGE injected via intravenous COMPARISON: None FINDINGS: SOFT TISSUE: No mass, edema or inflammatory change. ORAL CAVITY/FLOOR OF MOUTH, PHARYNX, LARYNX, HYPOPHARYNX: There is soft tissue fullness in the oral cavity on the right. Part of the abnormalityis a 1.3 cm rim enhancing collection. Surrounding edema extends moreinferiorly. The epiglottis and larynx are unremarkable. LYMPHADENOPATHY: No adenopathy. MAJOR SALIVARY GLANDS: No solid or cystic masses. No inflammatorychanges. THYROID: Normal size. No nodules greater than 1 cm. VASCULATURE: No apparent critical stenosis or occlusion. INTRACRANIAL/SKULL BASE/INCLUDED ORBITS: Limited intracranialevaluation. No abnormal findings. PARANASAL SINUSES: Well-aerated. CERVICAL SPINE: No significant abnormalities. LUNG APICES: Clear. OTHER: No other significant finding. IMPRESSION: Soft tissue fullness in the oral cavity on the right. There is a 1.3 cmrim enhancing collection. This might represent a small abscess. Correlationwith the patient's symptoms and direct visualization are recommended. THIS IS AN ELECTRONICALLY VERIFIED FINAL REPORT 07/22/2024 4:02 PM - Electronically signed by Caleb Vo M.D. RAJESH: RAJESH Report ID: [id number] Reading Location: [place] [address] us Turner Hsieh NP IMG CT PROCEDURES Final Res ult * eGFR (07/22/2024 2:48 PM CDT) eGFR >90 >=60 mL/min/1. 73 m2 Comment: Interpretive Data Reference Interval Normal >/= 90 mL/min/1.73m2 Mildly decreased* 60 - 89 mL/min/1.73m2 Mildly to moderately decreased 45 - 59 mL/min/1.73m2 Moderately to severely decreased 30 - 44 mL/min/1.73m2 Severely decreased 15 - 29 mL/min/1.73m2 Kidney Failure < 15 mL/min/1.73m2 *Relative to young adult level Estimated glomerular filtration rate is determined by the 2020 CKD-EPI equation recommended by the National Kidney Foundation (A Unifying Approach to GFR Estimation: Recommendations of the NKF-ASK Task Force on Reassessing the Inclusion of Race in Diagnosing Kidney Disease, JASN 202). The CKD-EPI equation should not be used for patients with unstable renal function and has not been validated in children and those over 70. Current interpretive data was last reviewed 2021. Blood 07/22/2024 2:48 PM CDT 07/22/2024 2:54 PM CDT us Turner Hsieh NP LAB BLOOD ORDERABLES Final Result [facility] [place]) 1 [facility] Department [place] [address] * (ABNORMAL) Differential, auto (07/22/2024 2:48 PM CDT) Neutrophil abs 8.87(H) 1.50 - 6.50 K/cumm Imm gran abs 0.03 0.00 - 0.10 K/cumm [facility] ([place]) Lymphocyte abs 1.18 0.80 - 3.30 K/cumm [facility] ([place]) Monocyte abs 0.56 0.20 - 0.80 K/cumm [facility] ([place]) Eosinophil abs 0.06 0.00 - 0.50 K/cumm [facility] ([place]) Basophil abs 0.04 0.00 - 0.10 K/cumm [facility] ([place]) Neutrophil pct 82.5 % [facility] ([place]) Comment: Interpretive Data Percent cell count reference ranges are not reported, since discordance with absolute values may lead to misinterpretation of CBC data. Current Interpretive Data was last revised on 2017. Imm gran pct 0.3 % [facility] ([place]) Comment: Interpretive Data Percent cell count reference ranges are not reported, since discordance with absolute values may lead to misinterpretation of CBC data. Current Interpretive Data was last revised on 2017. Lymphocyte pct 11.0 % [facility] ([place]) Comment: Interpretive Data Percent cell count reference ranges are not reported, since discordance with absolute values may lead to misinterpretation of CBC data. Current Interpretive Data was last revised on 2017. Monocyte pct 5.2 % [facility] ([place]) Comment: Interpretive Data Percent cell count reference ranges are not reported, since discordance with absolute values may lead to misinterpretation of CBC data. Current Interpretive Data was last revised on 2017. Eosinophil pct 0.6 % [facility] ([place]) Comment: Interpretive Data Percent cell count reference ranges are not reported, since discordance with absolute values may lead to misinterpretation of CBC data. Current Interpretive Data was last revised on 2017. Basophil pct 0.4 % [facility] ([place]) Comment: Interpretive Data Percent cell count reference ranges are not reported, since discordance with absolute values may lead to misinterpretation of CBC data. Current Interpretive Data was last revised on 2017. Blood 07/22/2024 2:48 PM CDT 07/22/2024 2:54 PM CDT us Turner Hsieh CREDIT RISK ANALYTICS MANAGER LAB BLOOD ORDERABLES Final Result [facility] ([place]) 1 [facility] [place] [address] * (ABNORMAL) CBC with auto differential (07/22/2024 2:48 PM CDT) WBC 10.74(H) 3.80 - 9.90 K/cumm Hgb 15.0 11.9 - 15.5 g/dL [facility] ([place]) Hct 46.2(H) 35.6 - 45.5 % [facility] ([place]) Plt 303 150 - 400 K/cumm [facility] ([place]) MPV 9.5 9.1 - 12.3 fL [facility] [place]) RBC 5.01 3.90 - 5.20 M/cumm [facility] ([place]) MCV 92.2 81.3 - 96.4 fL [facility] [place]) MCH 29.9 27.1 - 33.3 pg [facility]) MCHC 32.5 32.3 - 35.7 g/dL [facility]) RDW CV 14.5 11.1 - 14.9 % [facility] RDW SD 48.5(H) 35.7 - 48.1 fL [facility]) NRBC abs 0.00 0.00 - 0.01 K/cumm [facility] ([place]) Blood 07/22/2024 2:48 PM CDT 07/22/2024 2:54 PM CDT us Turner Hsieh NP LAB BLOOD ORDERABLES Final Result [facility] ([place]) 1 [facility] [place] [address] * Comprehensive metabolic panel (07/22/2024 2:48 PM CDT) Sodium 140 135 - 145 mmol/L Potassium, pl 4.0 3.3 - 4.9 mmol/L [facility] Chloride 105 97 - 110 mmol/L [facility]) CO2 25 22 - 32 mmol/L [facility]) Anion gap 10 2 - 15 mmol/L [facility] [place]) BUN 12 6 - 25 mg/dL [facility] ([place]) Creatinine 0.65 0.60 - 1.10 mg/dL [facility]) Glucose 90 70 - 199 mg/dL [facility] ([place]) Comment: Interpretive Data Fasting glucose >/= 126 mg/dl is diagnostic for diabetes. Fasting is defined as no caloric intake for at least 8 hours. Fasting glucose between 100 mg/dl to 125 mg/dl is diagnostic of prediabetes. In a patient with classic symptoms of hyperglycemia or hyperglycemic crisis, a random glucose >/= 200 mg/dl is diagnostic for diabetes. In the absence of unequivocal hyperglycemia, results should be confirmed by repeat testing. The classification and Diagnosis of Diabetes Diabetes Care 2021; 46: S19-S40. Current interpretive data was last revised 2022. Calcium 9.9 8.5 - 10.3 mg/dL [facility]) Bilirubin, total 0.3 0.1 - 1.2 mg/dL [facility] ([place]) Protein, pl 7.3 6.5 - 8.5 g/dL [facility] ([place]) Albumin 3.8 3.5 - 5.0 g/dL [facility] ([place]) Alk phos 93 40 - 130 Units/L [facility] ([place]) ALT 14 7 - 45 Units/L [facility]) AST 17 10 - 45 Units/L [facility] ([place]) Blood 07/22/2024 2:48 PM CDT 07/22/2024 2:54 PM CDT Turner Hsieh NP LAB BLOOD ORDERABLES Final Result [facility] [place] [facility] [place] [address] * MRI Hand Right WO Contrast (07/21/2024 [...] Vern Garcia M.D. JA: NEO Report ID: [id number] Reading Location: [id number] Procedure Note Vern Garcia MD - 07/21/2024 [...] Vern Garcia M.D. JA: NEO Report ID: [id number] Reading Location: [place] [address] Francine Munoz MD IMG MRI PROCEDURES Final Resul t * MRI Hand Left WO Contrast (07/21/2024 8:57 AM CDT) Anatomical Region Laterality Modality Upper Extremities Left Magnetic Reson ance 07/21/2024 9:26 AM CDT Narrative 07/21/2024 9:30 AM CDT EXAM DESCRIPTION: MRI HAND LEFT WO CONTRAST REASON FOR STUDY: Rheumatoid arthritis with pain for 2 years TECHNIQUE: Multiplanar, multisequence MRI of the left hand was performed without contrast. COMPARISON: None FINDINGS: Bones: No marrow edema or fracture. Joint Effusion: None. Articular Surfaces: Moderate arthritic changes 1st carpal metacarpal articulation. Mild arthritic changes radiocarpal and intercarpal articulation. Mild arthritic changes thumb index and middle finger metacarpal phalangeal articulation. Periarticular erosions are seen involving the metacarpal heads. Flexor Tendons: Intact. No tendinopathy. Extensor Tendons: Intact. No tendinopathy. Ligaments: Collateral ligaments and flexor pulleys are intact. IMPRESSION: Arthritic changes as above. Periarticular erosions involving the metacarpal heads. THIS IS AN ELECTRONICALLY VERIFIED FINAL REPORT 07/21/2024 9:30 AM - Electronically signed by Vernmerlene LARSON: NEO Report ID: [id number] Reading Location: [id number] Procedure Note Vern Garcia MD - 07/21/2024 EXAM DESCRIPTION: MRI HAND LEFT WO CONTRAST REASON FOR STUDY: Rheumatoid arthritis with pain for 2 years TECHNIQUE: Multiplanar, multisequence MRI of the left hand was performed without contrast. COMPARISON: None FINDINGS: Bones: No marrow edema or fracture. Joint Effusion: None. Articular Surfaces: Moderate arthritic changes 1st carpal metacarpal articulation. Mild arthritic changes radiocarpal and intercarpal articulation. Mild arthritic changes thumb index and middle fingermetacarpal phalangeal articulation. Periarticular erosions are seen involving the metacarpal heads. Flexor Tendons: Intact. No tendinopathy. Extensor Tendons: Intact. No tendinopathy. Ligaments: Collateral ligaments and flexor pulleys are intact. IMPRESSION: Arthritic changes as above. Periarticular erosions involving the metacarpal heads. THIS IS AN ELECTRONICALLY VERIFIED FINAL REPORT 07/21/2024 9:30 AM - Electronically signed by Vern Garcia M.D. JA: NEO Report ID: [id number] Reading Location: [id number] Francine Munoz MD [facility] MRI PROCEDURES Final Resul t from Last 3 Months Insurance [facility] MEDICARE ADVANTAGE Care Teams Charter Pilot Relationship Specialty Start Date End Date Adriano Stiles MD PCP - General Family Practice 01/10/21
--- OUTSIDE RECORDS SUMMARY | 2024-07-22 21:15 | XMS_ITS | Clinical Summary ---
Author Organization [facility] Healthcare Address [address] [place] [address] Care Team Providers Care Shear Setter Name Role Phone Adriano Stiles MD Primary Care Provider [phone] [phone] Allergies No known active allergies Medications clopidogreL [...] mg SL tabletIndication s:Coronary artery disease involving [place] coronary artery of [place] heart without angina pectoris Place 1 tablet [...] COVID-19 05/13/2021 Coronary artery disease invo lving [place] coronary artery of [place] heart without angina pectoris 01/10/2021 Essential hypertension 01/10/2021 History of tobacco use 01/10/2021 Mixed hyperlipidemia 01/10/2021 Encounters Date Type Department Care Team Description 07/22/2024 3:47 PM CDT - 07/22/2024 6:24 PM CDT Emergency [facility] Emergency Department [address] [place] [address] Ernst Hobbs MD Tonsillar abscess (Primary Dx) Discharge Disposition: Discharge to home or self care 07/21/2024 7:53 AM CDT - 07/21/2024 11:59 PM CDT Hospital Encounter [facility] [address] [place] [address] Rheumatoid arthritis involving hand, unspecified laterality, unspecified whether rheumatoid factor present (HCC) Discharge Disposition: Discharge to home or self care 07/21/2024 7:53 AM CDT - 07/21/2024 11:59 PM CDT Hospital Encounter [address] [address] Rheumatoid arthritis involving hand, unspecified laterality, unspecified whether rheumatoid factor present (HCC) Discharge Disposition: Discharge to home or self care from Last 3 Months Surgical History Surgery [...] 07/22/2024 2:11 PM CDT Plan of Treatment Health Maintenance [...] this topic Medical Devices Implanted Type Area Trimmer Operator Device Identifier Shelf Expiration Date Model / Serial / Lot [employer] Sling Urinary Incontinence Female Stress Short Desara Blue Nora-[id number] - [id number] Implanted:Qty: 1 on 01/05/2024 by Harjeet Francisco MD at [facility] N/A: [employer] 01/02/2026 [id number] / / [id number] Procedures Procedure Name Priority Date/Time Associated Diagnosis [...] A PCR Throat (07/22/2024 4:20 PM CDT) Pathologist [facility] Strep A DNA Not Detected Not Detected Comment: This test is performed using the [employer]pert [employer] A Streptococcal Assay. This is [...] MICROBIOLOGY - GENERAL O RDERABLES Final Result [facility] D[facility]TER 1 [facility] Department [place] [address] * CT Neck Soft Tissue W Contrast [...] Caleb Vo M.D. RAJESH: RAJESH Report ID: [id number] Reading Location: [id number] Procedure Note Rubens Vo MD - 07/22/2024 [...] Caleb Vo M.D. RAJESH: RAJESH Report ID: [id number] Reading Location: [id number] us Turner Hsieh NP IMG CT PROCEDURES [...] of Race in Diagnosing Kidney Disease, JASN 2020). The CKD-EPI equation should not be used for patients with unstable renal function and has not been validated in children and those over 70. Current interpretive data was last reviewed 2021. Blood 07/22/2024 2:48 PM CDT 07/22/2024 2:54 PM CDT us Turner Hsieh ELECTRICAL HIGH TENSION TESTER LAB BLOOD ORDERABLES Final Result [facility] ([place]) 1 [facility] Department [place] [address] * (ABNORMAL) Differential, auto (07/22/2024 2:48 PM CDT) Neutrophil abs 8.87(H) 1.50 - 6.50 K/cumm Imm gran abs 0.03 0.00 - 0.10 K/cumm [facility] ([place]) Lymphocyte abs 1.18 0.80 - 3.30 K/cumm [facility] ([place]) Monocyte abs 0.56 0.20 - 0.80 K/cumm [facility] ([place]) Eosinophil abs 0.06 0.00 - 0.50 K/cumm [facility] ([place]) Basophil abs 0.04 0.00 - 0.10 K/cumm [facility] ([place]) Neutrophil pct 82.5 % [facility] ([place]TER) Comment: Interpretive Data Percent cell count reference ranges are not reported, since discordance with absolute values may lead to misinterpretation of CBC data. Current Interpretive Data was last revised on 2017. Imm gran pct 0.3 % [facility] ([place]) Comment: Interpretive Data Percent cell count reference ranges are not reported, since discordance with absolute values may lead to misinterpretation of CBC data. Current Interpretive Data was last revised on 2017. Lymphocyte pct 11.0 % [facility] ([place]) Comment: Interpretive Data Percent cell count reference ranges are not reported, since discordance with absolute values may lead to misinterpretation of CBC data. Current Interpretive Data was last revised on 2017. Monocyte pct 5.2 % [facility] ([place]) Comment: Interpretive Data Percent cell count reference ranges are not reported, since discordance with absolute values may lead to misinterpretation of CBC data. Current Interpretive Data was last revised on 2017. Eosinophil pct 0.6 % [facility] ([place]) Comment: Interpretive Data Percent cell count reference ranges are not reported, since discordance with absolute values may lead to misinterpretation of CBC data. Current Interpretive Data was last revised on 2017. Basophil pct 0.4 % [facility] ([place]) Comment: Interpretive Data Percent cell count reference ranges are not reported, since discordance with absolute values may lead to misinterpretation of CBC data. Current Interpretive Data was last revised on 2017. Blood 07/22/2024 2:48 PM CDT 07/22/2024 2:54 PM CDT us Turner Hsieh NP LAB BLOOD ORDERABLES Final Result [facility] ([place]) 1 [facility] Department [place] [address] * (ABNORMAL) CBC with auto differential (07/22/2024 2:48 PM CDT) WBC 10.74(H) 3.80 - 9.90 K/cumm Hgb 15.0 11.9 - 15.5 g/dL [facility] ([place]) Hct 46.2(H) 35.6 - 45.5 % [facility] ([place]) Plt 303 150 - 400 K/cumm [facility] ([place]) MPV 9.5 9.1 - 12.3 fL [facility] ([place]) RBC 5.01 3.90 - 5.20 M/cumm [facility] ([place]) MCV 92.2 81.3 - 96.4 fL [facility] MCH 29.9 27.1 - 33.3 pg [facility] ([place]) MCHC 32.5 32.3 - 35.7 g/dL [facility] ([place]) RDW CV 14.5 11.1 - 14.9 % [facility] RDW SD 48.5(H) 35.7 - 48.1 fL [facility] NRBC abs 0.00 0.00 - 0.01 K/cumm [facility] ([place]RE[place]) Blood 07/22/2024 2:48 PM CDT 07/22/2024 2:54 PM CDT Turner Hsieh NP LAB BLOOD ORDERABLES Final Result [facility] ([place]) 1 [facility] Department [place] [address] * Comprehensive metabolic panel (07/22/2024 2:48 PM CDT) Sodium 140 135 - 145 mmol/L Potassium, pl 4.0 3.3 - 4.9 mmol/L [facility] Chloride 105 97 - 110 mmol/L [facility]) CO2 25 22 - 32 mmol/L [facility]) Anion gap 10 2 - 15 mmol/L [facility] BUN 12 6 - 25 mg/dL [facility] ([place]) Creatinine 0.65 0.60 - 1.10 mg/dL [facility] Glucose 90 70 - 199 mg/dL [facility] Comment: Interpretive Data Fasting glucose [...] ORDERABLES Final Result [facility] ([place]) 1 [facility] Department [place] [address] * MRI Hand Right WO Contrast (07/21/2024 [...] 9:44 AM - Electronically signed by Vern LARSON: NEO Report ID: [id number] Reading Location: [id number] Procedure Note Vern Garcia MD - 07/21/2024 [...] Vern Garcia M.D. JA: NEO Report ID: [id number] Reading Location: [id number] Francine Munoz MD IMG MRI PROCEDURES Final [...] Vern Garcia M.D. JA: NEO Report ID: [id number] Reading Location: [place] [address] Procedure Note Vern Garcia MD - 07/21/2024 [...] 9:30 AM - Electronically signed by Vern Garica M.D. JA: NEO Report ID: [id number] Reading Location: [id number] Francine Munoz MD IMG MRI PROCEDURES Final Resul t from Last 3 Months Insurance [facility] MEDICARE ADVANTAGE [facility] Address: [facility] [address] [place] [address] Care Teams Shear Setter Relationship Specialty Start Date End Date Adriano Stiles MD PCP - General Family Practice 01/10/21
--- OUTSIDE RECORDS SUMMARY | 2024-07-22 21:15 | XMS_ITS | Encounter Summary ---
Author Organization [facility] Address [address] [place] [address] Care Team Providers Care Stacker And Sorter Operator Name Role Phone Adriano Stiles MD Primary Care Provider [phone] [phone] Reason for Referral * MRI/CAT/PET Scan (Routine) - Closed Specialty Diagnoses / Procedures Referred By Alejandra calix Referred To Contact Radiology Diagnoses Rheumatoid arthritis involving hand, unspecified laterality, unspecified whether rheumatoid factor present (HCC) Procedures MRI Hand Left WO Contrast Francine Munoz MD [address] [place] [address] Phone: tel: fax: [address] [phone] Referral ID Status Reason Start Date Expiration Date Visits Re quested Visits Authorized [id number] Closed 07/06/2024 08/05/2025 1 1 Reason for Visit * MRI/CAT/PET Scan (Routine) - Closed Specialty Diagnoses / Procedures Referred By Alejandra calix Referred To Contact Radiology Diagnoses Rheumatoid arthritis involving hand, unspecified laterality, unspecified whether rheumatoid factor present (HCC) Procedures MRI Hand Left WO Contrast Francine Munoz MD [address] [place] [address] Phone: tel: fax: [address] [phone] Referral ID Status Reason Start Date Expiration Date Visits Re quested Visits Authorized [id number] Closed 07/06/2024 08/05/2025 1 1 Encounter Details Date Type Department Care Team (Latest Contact Info) Description 07/21/2024 7:53 AM CDT - 07/21/2024 11:59 PM CDT Hospital Encounter [facility] [address] [place] [address] Rheumatoid arthritis involving hand, unspecified laterality, unspecified [...] mg SL tabletIndications :Coronary artery disease involving [place] coronary artery of [place] heart without angina pectoris Place 1 tablet [...] Priority Date/Time Associated Diagnosis Comments MRI HAND LEFT WO CONTRAST Schedule Routine, Read Routine (OP Routine) 07/21/2024 8:57 AM CDT Rheumatoid arthritis involving hand, unspecified laterality, unspecified whether rheumatoid factor present (HCC) documented in this encounter Results * MRI Hand Left WO Contrast (07/21/2024 [...] Vern Garcia M.D. JA: NEO Report ID: [id number] Reading Location: [id number] Procedure Note Vern Garcia MD - 07/21/2024 [...] Vern Garcia M.D. JA: NEO Report ID: [id number] Reading Location: [id number] Francine Munoz MD IMG MRI PROCEDURES Final Resul t documented in this encounter Visit Diagnoses Diagnosis Rheumatoid arthritis involving hand, unspecified laterality, unspecified whether rheumatoid factor present (HCC) documented in this encounter Care Teams Stacker And Sorter Operator Relationship Specialty Start Date End Date Adriano Stiles MD PCP - General Family Practice 01/10/21 documented as of this encounter
--- OUTSIDE RECORDS SUMMARY | 2024-07-22 21:15 | XMS_ITS | Encounter Summary ---
Author Organization [facility] Healthcare Address [address] [place] [address] Care Team Providers Care Parcel Post Weigher Name Role Phone Adriano Stiles MD Primary Care Provider [phone] [phone] Reason for Visit * Reason Comments Sore Throat Dysphagia Encounter Details Date Type Department Care Team (Late st Contact Info) Description 07/22/2024 3:47 PM CDT - 07/22/2024 6:24 PM CDT Emergency [facility] Emergency Department [address] [place] [address] Ernst Hobbs MD [address] [place] [address] Tonsillar abscess (Primary Dx) Discharge Disposition: Discharge [...] on file documented as of this encounter Last Filed Vital Signs Vital Sign Reading [...] Mass Index 23.21 07/22/2024 2:11 PM CDT documented in this encounter Discharge Instructions * Discharge Instructions* Ernst Hobbs MD - 07/22/2024 6:06 PM CDT Take antibiotics as directed. Take Medrol Dosepak. Follow up with ENT, Dr. Augilar [phone]. * Attachments The following attachments cannot be sent through Care Everywhere. * Tonsillitis (Digital Campaign Specialist) ([place]) documented in this encounter Medications at Time of Discharge amoxicillin-clavu lanate (AUGMENTIN) 875-125 mg per tablet Take 1 tablet by mouth every 12 (twelve) hours for 10 days 20 tablet 07/22/2024 busPIRone (BUSPAR) 5 mg tablet Take 1 tablet (5 mg total) by mouth 2 (two) times a day 12/26/2020 clopidogreL (PLAVIX) 75 mg tabletIndications :myocardial infarction prevention,48 hours Take 1 tablet (75 mg total) by mouth every morning 12/20/2020 docusate sodium (COLACE) 100 mg capsuleIndication s:constipation Take 1 capsule (100 mg total) by mouth 2 (two) times a day For constipation. 40 capsule 01/05/[address] (CYMBALTA) 60 mg capsule Take [...] mg total) by mouth every morning 12/04/2020 methylPREDNISolon e (MEDROL DOSEPACK) 4 mg Dosepack Take as directed on package 1 packet 07/22/2024 metoprolol XL (TOPROL-XL) 50 mg extended release tablet Take 1 tablet (50 mg total) by mouth 2 (two) times a day nitroglycerin (NITROSTAT) 0.4 mg SL tabletIndications :Coronary artery disease involving [place] coronary artery of [place] heart without angina pectoris Place 1 tablet [...] 12/28/23 12/14/2023 documented as of this encounter Ordered Prescriptions Prescription Sig Dispense Quantity Refills Last Filled Start Date End Date methylPREDNISolone (MEDROL DOSEPACK) 4 mg Dosepack Take as directed on package 1 packet 07/22/2024 5 amoxicillin-clavul anate (AUGMENTIN) 875-125 mg per tablet Take 1 tablet by mouth every 12 (twelve) hours for 10 days 20 tablet 07/22/2024 5 documented in this encounter Discharge Disposition Disposition Code Departure Means Destination Comment s Discharge to home or self care documented in this encounter ED Notes * Ernst Hobbs MD - 07/22/2024 4:20 PM CDT HPI Chief Complaint Patient presents with Sore Throat Dysphagia Patient has 3 days of sore throat with difficulty swallowing, worse on the right side. No fever. Nonausea or vomiting. Patient History: Past Medical History: Diagnosis Date Anxiety and depression Arthritis CAD (coronary artery disease) Tachycardia Review of Systems Review of Systems Constitutional: Negative for chills and fever. HENT: Positive for sore throat and trouble swallowing. Negative for congestion and rhinorrhea. Eyes: Negative for pain. Respiratory: Negative for cough and shortness of breath. Cardiovascular: Negative for chest pain and leg swelling. Gastrointestinal: Negative for abdominal pain, diarrhea, nausea and vomiting. Genitourinary: Negative for difficulty urinating. Musculoskeletal: Negative for myalgias. Skin: Negative for rash. Neurological: Negative for dizziness and headaches. Psychiatric/Behavioral: Negative for behavioral problems. Physical Exam ED Triage Vitals [07/22/24 1411] Temp Pulse Resp BP SpO2 36.7 Â°C (98 Â°F) 82 18 116/72 96 % Temp src Heart Rate Source Patient Position BP Location FiO2 (%) Temporal -- -- -- -- Height Height Method Weight Weight Method 1.689 m (5' 6.5 ) Stated 66.2 kg (146 lb) Stated Physical Exam Vitals and nursing note reviewed. Constitutional: General: She is not in acute distress. Appearance: She is well-developed. HENT: Head: Normocephalic and atraumatic. Mouth/Throat: Pharynx: Pharyngeal swelling present. Comments: Swelling to right peritonsillar area. Uvula deviated to left. Eyes: Conjunctiva/sclera: Conjunctivae normal. Cardiovascular: Rate and Rhythm: Normal rate and regular rhythm. Heart sounds: No murmur heard. Pulmonary: Effort: Pulmonary effort is normal. No respiratory distress. Breath sounds: Normal breath sounds. Abdominal: Palpations: Abdomen is soft. Tenderness: There is no abdominal tenderness. Musculoskeletal: General: No swelling. Cervical back: Neck supple. Skin: General: Skin is warm and dry. Capillary Refill: Capillary refill takes less than 2 seconds. Neurological: Mental Status: She is alert. Psychiatric: Mood and Affect: Mood normal. Labs Reviewed CBC WITH AUTO DIFFERENTIAL - Abnormal Result Value WBC 10.74 (*) Hgb 15.0 Hct 46.2 (*) Plt 303 MPV 9.5 RBC 5.01 MCV 92.2 MCH 29.9 MCHC 32.5 RDW CV 14.5 RDW SD 48.5 (*) NRBC abs 0.00 DIFFERENTIAL AUTO - Abnormal Neutrophil abs 8.87 (*) Imm gran abs 0.03 Lymphocyte abs 1.18 Monocyte abs 0.56 Eosinophil abs 0.06 Basophil abs 0.04 Neutrophil pct 82.5 Imm gran pct 0.3 Lymphocyte pct 11.0 Monocyte pct 5.2 Eosinophil pct 0.6 Basophil pct 0.4 STREPTOCOCCUS GROUP A PCR Strep A DNA Not Detected COMPREHENSIVE METABOLIC PANEL Sodium 140 Potassium, pl 4.0 Chloride 105 CO2 25 Anion gap 10 BUN 12 Creatinine 0.65 Glucose 90 Calcium 9.9 Bilirubin, total 0.3 Protein, pl 7.3 Albumin 3.8 Alk phos 93 ALT 14 AST 17 EGFR eGFR >90 CT Neck Soft Tissue W Contrast Final Result MDM Medical Decision Making Patient presents with sore throat, difficulty swallowing. Amount and/or Complexity of Data Reviewed Labs: Details: WBC 7.4. Radiology: Details: CT: Small ring enhancing lesion on right, perhaps a small abscess Discussion of management or test interpretation with external provider(s): Differential diagnosis: Tonsillitis, peritonsillar abscess. Discussed with the ENT. They said they would not do any intervention. Will place on antibiotics and steroids. Follow up with the ENT. Risk Prescription drug management. ED Course as of 07/22/241807 Time: 05/16 1808 Comment: Dr. Aguilar, ENT. Dilip for outpatient management. Follow up in clinic. By: Ernst Hobbs MD Final diagnoses: Tonsillar abscess Ernst Hobbs MD 07/22/241808 * Jaylin Kraus RN - 07/22/2024 2:10 PM CDT Pt arrives with c/o sore throat and difficulty swallowing x 3 days. Pt was seen at and they senther here. Also reporting r sided neck pain. Pt was swabbed for strep at and it was negative documented in this encounter Plan of Treatment Not on file documented as of this encounter Procedures Procedure Name Priority Date/Time Associated Diagnosis Comments STREPTOCOCCUS GROUP A PCR STAT 07/22/2024 4:[address] SOFT TISSUE NECK W CONTRAST ED 07/22/2024 3:31 PM CDT EGFR STAT 07/22/2024 2:48 PM CDT DIFFERENTIAL AUTO STAT 07/22/2024 2:4 8 PM CDT CBC WITH AUTO DIFFERENTIAL STAT 07/22/2024 2:48 PM CDT COMPREHENSIVE METABOLIC PANEL STAT 07/22/2024 2:48 PM CDT documented in this encounter Results * Streptococcus Group A PCR Throat (07/22/2024 4:20 PM CDT) Strep A DNA Not Detected Not Detected Comment: This test is performed using the [employer] Xpert Group A Streptococcal Assay. This is [...] 4:20 PM CDT 07/22/2024 4:22 PM CDT us Ernst Hobbs MD LAB MICROBIOLOGY - GENERAL O RDERABLES Final Result [facility] ([place]) 1 [facility] Department [place] [address] * CT Neck Soft Tissue W Contrast [...] Caleb Vo M.D. RAJESH: RAJESH Report ID: [id number] Reading Location: [id number] Procedure Note Rubens Vo MD - 07/22/2024 [...] Caleb Vo M.D. RAJESH: RAJESH Report ID: [id number] Reading Location: [place] [address] Turner Hsieh NP IMG CT PROCEDURES Final [...] LAB BLOOD ORDERABLES Final Result [facility] [place]) 1 [facility] Department [place] [address] * (ABNORMAL) Differential, auto (07/22/2024 2:48 PM CDT) Neutrophil abs 8.87(H) 1.50 - 6.50 K/cumm Imm gran abs 0.03 0.00 - 0.10 K/cumm [facility] ([place]) Lymphocyte abs 1.18 0.80 - 3.30 K/cumm [facility] ([place]) Monocyte abs 0.56 0.20 - 0.80 K/cumm [facility] ([place]) Eosinophil abs 0.06 0.00 - 0.50 K/cumm [facility] ([place]) Basophil abs 0.04 0.00 - 0.10 K/cumm [facility] ([place]) Neutrophil pct 82.5 % [facility] ([place]) Comment: Interpretive Data Percent cell count reference ranges are not reported, since discordance with absolute values may lead to misinterpretation of CBC data. Current Interpretive Data was last revised on 2017. Imm gran pct 0.3 % [facility] ([place]) Comment: Interpretive Data [...] PM CDT 07/22/2024 2:54 PM CDT Turner Adela Thurm FUNERAL DRIVER LAB BLOOD ORDERABLES Final Result [facility] (ANDREINA) 1 [facility] Department [place] [address] * Comprehensive metabolic panel (07/22/2024 2:48 PM [...] 07/22/2024 2:54 PM CDT us Turner Hsieh FUNERAL DRIVER LAB BLOOD ORDERABLES Final Result [facility] ([place]) 1 [facility] [place] [address] * (ABNORMAL) CBC with auto differential (07/22/2024 [...] ORDERABLES Final Result [facility] ([place]) 1 [facility] [place] [address] documented in this encounter Visit Diagnoses Diagnosis Tonsillar abscess- Primary documented in this encounter Administered Medications Inactive Administered Medications - up to 3 most recent administrations Medication Order MAR Action Action Date Dose Rate Site ampicillin-sulbactam (UNASYN) 3 g in sodium chloride 0.9% 100 mL IVPB 3 g, intravenous, at 220 mL/hr, Administer over 30 Minutes, Once, On Thu07/22/24 at 1604, For 1 dose, Mini-Bag Plus bag, Indications: Upper Respiratory/HEENT InfectionIndications:Upper Respiratory/HEENT Infection New Bag 07/22/2024 4:16 PM CDT 3 g 220 mL/hr ioversoL (OPTIRAY 350) syringe 75 mL 75 mL, intravenous, Once in imaging, contrast, Starting on Thu07/22/24 at 1516, For 1 dose Contrast Given 07/22/2024 3:19 PM CDT 75 mL documented in this encounter Active and Recently Administered Medications Times are shown in CDT. Scheduled Medication Order 07/20/2024 07/21/2024 07/22/2024 ampicillin-sulbactam (UNASYN) 3 g in sodium chloride 0.9% 100 mL IVPB (COMPLETED) 3 g, intravenous, at 220 mL/hr, Administer over 30 Minutes, Once, On Thu07/22/24 at 1604, For 1 dose, Mini-Bag Plus bag, Indications: Upper Respiratory/HEENT Infection 1616 (New Bag - Prov ider: Mar Steinberg, CATHIE)1647 (Stopped - Provider: Emilee Pablo RN) PRN Medication Order 07/20/2024 07/21/2024 07/22/2024 ioversoL (OPTIRAY 350) syringe 75 mL (COMPLETED) 75 mL, intravenous, Once in imaging, contrast, Starting on Thu07/22/24 at 1516, For 1 dose 1519 (Contrast Given - Provider: RT Franko) documented in this encounter Care Teams Parcel Post Weigher Relationship Specialty Start Date End Date Adriano Stiles MD PCP - General Family Practice 01/10/21 documented as of this encounter
[2024-07-23 14:24] LABS: EDSTREPNEGPOS1 Negative (Negative)
== END 2024-07-22 13:30 | disposition short-term general hospital (02) ==
PROVIDERS: Nurse Practitioner; PCP Family Medicine
DX: J36 Peritonsillar abscess (principal)
CPT/HCPCS: 87081; 87880; 99212; G0463

== ENCOUNTER 2024-09-19 13:22 | Outpatient (CLI) | payer MEDICARE, SELFPAY ==
--- NOTE | ~2024-09-19 | MR_ITS ---
MRI of the thoracic spine Clinical History: Back pain Technique: Axial T2-weighted and gradient images, and sagittal T1-weighted, T2-weighted, and STIR vladimir ges were acquired. Findings: There is no fracture or subluxation of the thoracic spine. Vertebral bodies maintain normal height and alignment. No suspicious bone marrow signal abnormality seen. There are mild degenerative disc changes at the mid to lower thoracic spine. At T5-T6, there is a sma ll central disc protrusion which focally flattens the ventral cord. No other significant disc bulge o r herniation seen in the remainder of the thoracic spine. No other areas of canal stenosis or cord co mpression. Neural foramina are relatively well preserved throughout the thoracic spine. No abnormal signal seen in the spinal cord. Paravertebral soft tissues are unremarkable. Impression: Focal central disc protrusion at T5-T6 which focally flattens the ventral cord. Multilevel mild degenerative disc narrowing at the mid lower thoracic spine. Reviewed, dictated and finalized at [facility]. Impression: Focal central disc protrusion at T5-T6 which focally flattens the ventral cord. Multilevel mild degenerative disc narrowing at the mid lower thoracic spine.
== END 2024-09-19 13:23 | disposition home or self-care (01) ==
LOC: GOSHIMG 13:22
PROVIDERS: PCP Family Medicine; Visit Provider Nurse Practitioner Family
DX: M51.04 Intervertebral disc disorders with myelopathy, thoracic region (principal); M51.34 Other intervertebral disc degeneration, thoracic region
CPT/HCPCS: 72146

== ENCOUNTER 2025-02-13 10:36 | Outpatient (CLI) | payer MEDICARE, SELFPAY ==
--- NOTE | ~2025-02-13 | XR_ITS ---
EXAMINATION: XR shoulder LT min 2V, 02/13/2025 10:45 ART PROFESSOR HISTORY: lt sided shoulder/ neck pain radiating down arm x 1 month COMPARISON: No comparisons available. Findings: No acute fracture or malalignment. No significant degenerative changes. Soft tissues unremarkable. Impression: No acute fracture or malalignment. Reviewed, dictated and finalized at location P. PROFESSOR Impression: No acute fracture or malalignment.
--- NOTE | ~2025-02-13 | XR_ITS ---
[id number] Indication: lt sided shoulder/ neck pain radiating down arm x 1 month Comparison: None Findings: The vertebral heights are intact. No fracture or subluxation. Severe loss of disc height C3-4 C4-5 C5-6. Soft tissues unremarkable Impression: No acute abnormality. Reviewed, dictated and finalized at location P. [employer] Impression: No acute abnormality.
[2025-02-13 18:50] LABS: Hematocrit 43.1 % (37.0-47.0); Hemoglobin 13.5 g/dL (12.0-15.0); Immature Granulocyte Percent A 0.2 % (0-0.5); Lymphocytes Absolute Auto 1.44 K/mm3 (0.9-3.2); Mean Corpuscular HGB Conc 31.3 g/dl (32-36); Mean Corpuscular Hemoglobin 29.9 pg (26-34); Mean Corpuscular Volume 95.4 fl (80-100); Nucleated Red Blood Cells Absolute Auto 0.000 K/mm3 (0.0-0.012); Nucleated Red Blood Cells Perc 0.0 % (0.0-0.2); Platelet Count Result 265 k/mm3 (150-375); Red Blood Count 4.52 M/mm3 (4.2-5.4); White Blood Count 5.8 K/mm3 (4.5-10.0)
[2025-02-13 19:46] LABS: Alanine Aminotransferase 41 U/L (6-35); Albumin Level 3.6 g/dL (3.5-5.1); Alkaline Phosphatase 84 U/L (38-126); Anion Gap 0 mmol/L (4-12); Aspartate Amino Transferase 75 U/L (14-36); Bilirubin,Total 0.5 mg/dL (0.2-1.3); Blood Urea Nitrogen 14 mg/dL (7-17); Calcium 9.6 mg/dL (8.4-10.2); Carbon Dioxide 29 mmol/L (22-30); Chloride 108 mmol/L (98-107); Estimated Glomerular Filt Rate > 60; Glucose 90 mg/dL (65-110); Magnesium 2.2 mg/dL (1.6-2.3); Potassium 4.6 mmol/L (3.4-5.0); Sodium 137 mmol/L (137-145); Total Protein 6.8 g/dL (6.3-8.2)
[2025-02-13 19:47] LABS: Iron 96 ug/dL (37-170)
[2025-02-13 20:03] LABS: Percent Iron Saturation 23 % (20-50)
[2025-02-13 20:23] LABS: Thyroid Stimulating Hormone 1.150 uIU/mL (0.465-4.680)
[2025-02-13 20:30] LABS: Ferritin 25.20 ng/mL (11.1-264)
[2025-02-13 20:42] LABS: Vitamin B12 291.0 pg/mL (239-931)
== END 2025-02-13 10:37 | disposition home or self-care (01) ==
LOC: ANHBWCLAB 10:36
PROVIDERS: PCP Family Medicine; Visit Provider Family Medicine
DX: Z00.00 Encounter for general adult medical examination without abnormal findings (principal); I25.10 Atherosclerotic heart disease of native coronary artery without angina pectoris; E78.5 Hyperlipidemia, unspecified; E61.1 Iron deficiency; E53.8 Deficiency of other specified B group vitamins; E66.9 Obesity, unspecified; R79.89 Other specified abnormal findings of blood chemistry; G47.00 Insomnia, unspecified; D64.9 Anemia, unspecified; F41.9 Anxiety disorder, unspecified; M25.519 Pain in unspecified shoulder; M54.2 Cervicalgia; Z87.891 Personal history of nicotine dependence; Z79.899 Other long term (current) drug therapy
CPT/HCPCS: 36415; 72040; 73030; 80053; 82172; 82306; 82607; 82728; 83540; 83550; 83735; 84443; 85025